=== PATIENT | male | born 1945 | race Caucasian/White ===

== ENCOUNTER 2018-05-02 15:45 | Inpatient (IN) ==
--- NOTE | 2018-05-02 16:18 | ED ---
HPI General Chief Complaint: Shortness of Breath/Dyspnea Stated Complaint: Cardiac Time Seen by Provider: 05/02/18 15:47 Source: patient Mode of arrival: EMS Limitations: no limitations History of Present Illness HPI narrative: The patient is a 73-year-old male who presents to the emergency department via EMS from the [place] clinic for atrial fibrillation. The patient states he has a remote history of atrial fibrillation with previous ablation and was on anticoagulation and medications for atrial fibrillation, however, stopped taking them 8 years ago. The patient states 8 years ago he was feeling well and was walking 3 miles daily. However, the patient moved to the local area and states it is unsafe to walk where he lives on [address]. The patient states of the last 2 months he has gained approximately 20 pounds and has increasing swelling to the lower extremities. He now notes exertional dyspnea, palpitations, and an elevated heart rate. The patient occasionally complains of mild chest discomfort with exertional activity. The patient went to the [place] clinic earlier today and they called EMS to bring him to the emergency department. The patient was in A. fib with RVR with a rate in the 140s according to EMS and they provided the patient 20 mg of Cardizem intravenously which brought the patient's heart rate down into the 80s and 90s. The patient still has mild chest discomfort. The patient states he is not taking any current medications for atrial fibrillation. He does note the 20 pound weight gain with lower extremity edema, but denies any change in urinary output. Symptoms are moderate and progressive. MD complaint: Reports rapid heart beat, "heart racing", palpitations, irregular heart beat and atrial fibrillation Onset (ago): hour(s) Duration: intermittent Severity: moderate Context: Reports occurred during rest Arrhythmia history: Reports atrial fibrillation and history of ablation Associated symptoms: Reports chest pain and shortness of breath Treatments prior to arrival: Reports calcium channel sam Related Data Home Medications Medication Instructions Recorded Confirmed No Known Home Medications 05/02/18 05/02/18 Allergies Allergy/AdvReac Type Severity Reaction Status Date / Time No Known Allergies Allergy Verified 05/02/18 15:51 Review of Systems ROS: all other systems reviewed are negative PENDING SALE TO [facility] Medical History Medical History Atrial fibrillation (Acute) Cardiomyopathy (Acute) Gastric reflux (Acute) Hypertension (Acute) Social History Social History Substance History: No History of Abuse Second Hand Smoke Exposure: No Smoking Status: Never smoker How Often Do You Have a Drink Containing Alcohol: Monthly or less Recent Travel in [facility] within the Last 8 Weeks: Yes Recent Out of Country Travel within the Last 8 Weeks: No Exam Narrative Exam Narrative: GENERAL: Awake, alert, pleasant 73-year-old male who appears his stated age and is in mild respiratory distress. SKIN: Focused skin assessment warm/dry. HEAD: Atraumatic. Normocephalic. EYES: Pupils equal and round. No scleral icterus. No injection or drainage. ENT: No nasal bleeding or discharge. Mucous membranes pink and moist. NECK: Trachea midline. No JVD. CARDIOVASCULAR: Irregularly irregular with a heart rate in the 90s. RESPIRATORY: Mild tachypnea, few rales in the bases noted bilaterally. GASTROINTESTINAL: Abdomen soft, non-tender, nondistended. MUSCULOSKELETAL: No obvious deformities. No clubbing. No cyanosis. Lower extremity pitting edema. NEUROLOGICAL: Awake and alert. No obvious cranial nerve deficits. Motor grossly within normal limits. Normal speech. PSYCHIATRIC: Appropriate mood and affect; insight and judgment normal. Course Initial Documented Vital Signs Temperature 98.9 F 05/02/18 15:51 Pulse Rate 157 H 05/02/18 15:51 Respiratory Rate 23 05/02/18 15:51 Blood Pressure 152/105 H 05/02/18 15:51 Pulse Oximetry 98 05/02/18 15:51 Last Documented Vital Signs Temperature 98.5 F 05/02/18 18:18 Pulse Rate 96 H 05/02/18 18:18 Respiratory Rate 22 05/02/18 18:18 Blood Pressure 123/71 05/02/18 18:18 Pulse Oximetry 96 05/02/18 17:41 Medical Decision Making [facility] Narrative Medical decision making narrative: IV was established, labs are drawn and sent, and the patient was placed on cardiac telemetry monitoring and continuous pulse oximetry monitoring. The patient received Cardizem prior to arrival, was given aspirin p.o. in the emergency department. EKG was ordered and interpreted. Chest x-ray was obtained. Troponin and CPK were sent to lab. Chest x-ray reveals mild pulmonary edema. CT pulmonary angiogram was negative for PE but does reveal pulmonary edema. BNP is elevated, troponin is elevated 0.07. The patient continued to be in A. fib with RVR with a rate of 115, therefore, was administered Cardizem 10 mg intravenously. The patient has acute CHF with pulmonary edema and mildly elevated troponin, require admission, echocardiogram , and serial cardiac enzymes. I discussed the patient with the on-call medical service who agrees with admission. Medical Screen Exam Complete: Yes Emergency Medical Condition: Yes Differential Diagnosis Differential Diagnosis: Differential diagnosis includes ACS, cardiomyopathy, congestive heart failure, pulmonary edema, pleural effusion, pulmonary embolism , electrolyte abnormality. Lab Data Result diagrams: 05/02/18 16:03 05/02/18 16:03 Lab Results 05/02/18 05/02/18 05/02/18 Range/Units 16:03 16:03 16:03 WBC 8.2 (4.0-11.0) th/mm3 RBC 4.23 L (4.50-5.90) mil/mm3 Hgb 13.8 (13.0-17.0) gm/dL Hct 41.0 (39.0-51.0) % MCV 96.9 (80.0-100.0) fL MCH 32.6 (27.0-34.0) pg MCHC 33.6 (32.0-36.0) % RDW 15.2 (11.6-17.2) % Plt Count 237 (150-450) th/mm3 MPV 10.1 (7.0-11.0) fL Neut % (Auto) 58.4 (16.0-70.0) % Lymph % (Auto) 27.8 (9.0-44.0) % [place] % (Auto) 12.3 H (0.0-8.0) % Eos % (Auto) 0.2 (0.0-4.0) % Baso % (Auto) 1.3 (0.0-2.0) % Neut # (Auto) 4.8 (1.8-7.7) th/mm3 Lymph # (Auto) 2.3 (1.0-4.8) th/mm3 [place] # (Auto) 1.0 H (0.0-0.9) th/mm3 Eos # (Auto) 0.0 (0.0-0.4) th/mm3 Baso # (Auto) 0.1 (0.0-0.2) th/mm3 WBC Differential . Differential Comment Auto diff final PT 13.6 H (9.8-11.6) sec INR 1.3 Ratio APTT 28.4 (23.4-31.7) sec Sodium 138 (136-145) meq/L Potassium 4.7 (3.5-5.1) meq/L Chloride 105 (98-107) meq/L Carbon Dioxide 22.5 (21.0-32.0) meq/L Anion Gap 11 (5-15) meq/L BUN 26 H (7-18) mg/dL Creatinine 1.47 H (0.60-1.30) mg/dL Estimated GFR 47 L (>89) mL/min Random Glucose 113 H (74-106) mg/dL Calcium 8.8 (8.5-10.1) mg/dL Magnesium (1.5-2.5) mg/dL Total Bilirubin 1.2 H (0.2-1.0) mg/dL AST 48 H (15-37) U/L ALT 64 (12-78) U/L Alkaline Phosphatase 163 H (45-117) U/L Total Creatine Kinase 80 (39-308) U/L Troponin I 0.07 H (0.02-0.05) ng/mL B-Natriuretic Peptide (0-100) pg/mL Total Protein 7.5 (6.4-8.2) g/dL Albumin 3.6 (3.4-5.0) g/dL 05/02/18 05/02/18 Range/Units 16:03 16:03 WBC (4.0-11.0) th/mm3 RBC (4.50-5.90) mil/mm3 Hgb (13.0-17.0) gm/dL Hct (39.0-51.0) % MCV (80.0-100.0) fL MCH (27.0-34.0) pg MCHC (32.0-36.0) % RDW (11.6-17.2) % Plt Count (150-450) th/mm3 MPV (7.0-11.0) fL Neut % (Auto) (16.0-70.0) % Lymph % (Auto) (9.0-44.0) % [place] % (Auto) (0.0-8.0) % Eos % (Auto) (0.0-4.0) % Baso % (Auto) (0.0-2.0) % Neut # (Auto) (1.8-7.7) th/mm3 Lymph # (Auto) (1.0-4.8) th/mm3 [place] # (Auto) (0.0-0.9) th/mm3 Eos # (Auto) (0.0-0.4) th/mm3 Baso # (Auto) (0.0-0.2) th/mm3 WBC Differential Differential Comment PT (9.8-11.6) sec INR Ratio APTT (23.4-31.7) sec Sodium (136-145) meq/L Potassium (3.5-5.1) meq/L Chloride (98-107) meq/L Carbon Dioxide (21.0-32.0) meq/L Anion Gap (5-15) meq/L BUN (7-18) mg/dL Creatinine (0.60-1.30) mg/dL Estimated GFR (>89) mL/min Random Glucose (74-106) mg/dL Calcium (8.5-10.1) mg/dL Magnesium 2.0 (1.5-2.5) mg/dL Total Bilirubin (0.2-1.0) mg/dL AST (15-37) U/L ALT (12-78) U/L Alkaline Phosphatase (45-117) U/L Total Creatine Kinase (39-308) U/L Troponin I (0.02-0.05) ng/mL B-Natriuretic Peptide 559 H (0-100) pg/mL Total Protein (6.4-8.2) g/dL Albumin (3.4-5.0) g/dL Imaging Data Radiologist's impression: Chest X-Ray 05/02/18 15:56 CONCLUSION: Findings suggesting small bilateral pleural effusions and associated bibasilar atelectasis. Cardiomediastinal contours are at upper limits of normal. Recommend clinical correlation for the possibility of fluid overload. Chest CTA 05/02/18 15:57 CONCLUSION: 1. No evidence of any definite pulmonary emboli. 2. Increased interstitial markings bilaterally along with bilateral effusions characteristic for pulmonary edema. ECG Data EKG Prior to Arrival: No Attestation: I personally reviewed and interpreted this ECG as follows: Interpretation: EKG reveals atrial fibrillation with RVR. Heart rate 108. RSR prime in V1. Discharge Plan Discharge Disposition Patient Disposition: ED Admit(ED Internal Use Only) Discharge Condition Condition: Stable Discharge Order Discharge Orders: ED Use Only Admit Order (Routine); Ordered 05/02/18 Ordered By: Niranjan Means Discharge Details Diagnosis: Congestive heart failure, Atrial fibrillation with RVR, Elevated troponin Physicians Team ED Provider: Niranjan Means Primary Care Provider: [facility],Physician 's Attending Provider: Zachary Arteaga ED Status: Admitted Patient
[2018-05-02 16:33] LABS: Baso # (Auto) 0.1 th/mm3 (0.0-0.2); Baso % (Auto) 1.3 % (0.0-2.0); Eos % (Auto) 0.2 % (0.0-4.0); Hemoglobin 13.8 gm/dL (13.0-17.0); Lymph # (Auto) 2.3 th/mm3 (1.0-4.8); Lymph % (Auto) 27.8 % (9.0-44.0); Mean Corpuscular HGB Conc 33.6 % (32.0-36.0); Mean Corpuscular Hemoglobin 32.6 pg (27.0-34.0); Mean Corpuscular Volume 96.9 fL (80.0-100.0); Mean Platelet Volume 10.1 fL (7.0-11.0); Mono % (Auto) 12.3 % (0.0-8.0); Neut # (Auto) 4.8 th/mm3 (1.8-7.7); Neut % (Auto) 58.4 % (16.0-70.0); Platelet Count 237 th/mm3 (150-450); Red Blood Count 4.23 mil/mm3 (4.50-5.90); Red Cell Distribution Width 15.2 % (11.6-17.2); White Blood Count 8.2 th/mm3 (4.0-11.0)
--- NOTE | 2018-05-02 16:39 | XR ---
EXAM DATE: 05/02/2018 4:33 PM EST AGE/SEX: 73 years / Male INDICATIONS: Short of breath. CLINICAL DATA: This is the patient's initial encounter. Patient reports that signs and symptoms have been present for 1 day and indicates a pain score of 0/10. MEDICAL/SURGICAL HISTORY: Myocardial infarction. Stroke. Congestive heart failure. . Cardiac stents. COMPARISON: No comparison available. FINDINGS: A single AP view of the chest demonstrates the lungs to be symmetrically aerated with mild blunting o f the lateral costophrenic angles with associated ill-defined bibasilar opacities. These findings lik tom represent small bilateral pleural effusions with associated bibasilar atelectasis. The cardiomed iastinal contours are at upper limits of normal. Osseous structures are grossly intact. CONCLUSION: Findings suggesting small bilateral pleural effusions and associated bibasilar atelectasis. Cardiomed iastinal contours are at upper limits of normal. Recommend clinical correlation for the possibility o f fluid overload. Electronically signed by: Lauryn Hartmann MD Board Certified Radiologist 05/02/2018 4:38 PM EST
[2018-05-02 16:42] LABS: Activated Partial Thrombo Time 28.4 sec (23.4-31.7); INR 1.3 Ratio; Prothrombin Time 13.6 sec (9.8-11.6)
[2018-05-02 16:44] LABS: Alanine Aminotransferase 64 U/L (12-78); Albumin 3.6 g/dL (3.4-5.0); Anion Gap 11 meq/L (5-15); Aspartate Aminotransferase 48 U/L (15-37); Blood Urea Nitrogen 26 mg/dL (7-18); Calcium 8.8 mg/dL (8.5-10.1); Carbon Dioxide 22.5 meq/L (21.0-32.0); Chloride 105 meq/L (98-107); Glomerular Filtration Rate 47 mL/min (>89); Glucose,Random 113 mg/dL (74-106); Potassium 4.7 meq/L (3.5-5.1); Sodium 138 meq/L (136-145)
[2018-05-02 16:48] LABS: Alkaline Phosphatase 163 U/L (45-117); Total Protein 7.5 g/dL (6.4-8.2); Troponin I 0.07 ng/mL (0.02-0.05)
[2018-05-02 16:54] LABS: Creatine Kinase 80 U/L (39-308)
--- NOTE | 2018-05-02 17:44 | CT ---
EXAM DATE: 05/02/2018 5:39 PM EST AGE/SEX: 73 years / Male INDICATIONS: Shortness of breath. Palpitations. CLINICAL DATA: This is the patient's initial encounter. Patient reports that signs and symptoms have been present for 1 day and indicates a pain score of 0/10. MEDICAL/SURGICAL HISTORY: Hypertension. Cardiomyopathy. A-fib. None. RADIATION DOSE: 23.15 CTDI (mGy) COMPARISON: [facility] – [place], CHEST 1V SINGLE AP, 05/02/2018. . TECHNIQUE: Volumetric scanning was performed using a multi-row detector CT scanner during bolus infu eduarda of 73 ml Omnipaque 350 (iohexol) nonionic water-soluble contrast as a single exam dose. The armando a was post processed with a variety of visualization algorithms including full volume maximum intensi ty projection and sliding thin slab reformation. Using automated exposure control and adjustment of t he mA and/or kV according to patient size, radiation dose was kept as low as reasonably achievable to obtain optimal diagnostic quality images. DICOM format image data is available electronically for r eview and comparison. FINDINGS: Pulmonary Arteries: No filling defects are seen in the pulmonary arteries out to the subsegmental ve ssels. The left and right pulmonary arteries are normal in diameter. Lung: There is increased interstitial markings bilaterally along with bilateral effusions suggestive of pulmonary edema. Effusion: Bilateral pleural effusions, right slightly larger than the left. Mediastinum: No evidence of mediastinal or hilar adenopathy. Other: The axilla is unremarkable. CONCLUSION: 1. No evidence of any definite pulmonary emboli. 2. Increased interstitial markings bilaterally along with bilateral effusions characteristic for pul monary edema. Electronically signed by: Zachary Bradley MD Board Certified Radiologist 05/02/2018 5:42 PM EST
--- NOTE | 2018-05-02 18:42 | P.HPFP ---
History of Present Illness Primary Care Physician: Physician [facility] <JenniZachary - 05/03/18 10:42> Physician [facility] <Dewey Norton - 05/02/18 19:46> Chief Complaint: Shortness of breath, dyspnea on exertion <Dewey Norton - 05/02/18 19:46> History of Present Illness: The patient is a 73-year-old male with a history of heart failure status post PCI with stent placement and atrial fibrillation status post ablation in 2008 who has been noncompliant with his medications for the past 8 years who presented to the [facility] with c/o shortness of breath, dyspnea on exertion, was found to have A. fib with RVR, and was transported to the emergency department via EMS. The patient states he has a remote history of atrial fibrillation with previous ablation and was on anticoagulation and medications for atrial fibrillation and heart failure, however he stopped taking them 8 years ago. The patient states 8 years ago, he was feeling well and was walking daily. However, the patient moved to the local area and states it is unsafe to walk where he lives on [address]. The patient states that for the last 2 months he has gained approximately 28 pounds and has had increasing swelling of the lower extremities. He recently notes progressively worse shortness of breath, dyspnea on exertion when walking to the bathroom, dizziness. Patient reports that his daughter has been trying to get him to come to the emergency department for the past week. Thus, the patient went to the [facility] clinic earlier today, and they called EMS to bring him to the emergency department. The patient was in A. fib with RVR with a rate in the 140s according to EMS and they provided the patient 20 mg of Cardizem intravenously which brought the patient's heart rate down into the 80s and 90s. The patient currently denies any chest discomfort. The patient states he is not taking any current medications for atrial fibrillation. He reports an increase in in urinary output since receiving diuretics in the emergency department. PMH: Atrial fibrillation, heart failure, coronary artery disease, astigmatism PSH: In 1985, patient was was having a lot of sciatica pain, was diagnosed with a ruptured disc, and he received a spinal injection of an enzyme from a papaya, which cured his sciatica. He also reports a h/o cardiac stent, ablation for A. fib, appendectomy at 4 years old. meds: used to take Coumadin, anti-hypertensive med, perhaps HCTZ allergies: NKA FH: dad at 67 of CVA, had [place], [place]; mom had CHF SH: no ML, but patient reports that he used to be a weekend binge drinker since 1971 until he did rehab at [place] in 2010. Patient lives at a local 65 yo and older community, completely independently. His daughter and son-in-law live in the area locally. <Dewey Norton 05/02/18 20:46> - Diagnosis (1) Atrial fibrillation with RVR (2) Congestive heart failure (3) Elevated troponin (4) SURYA (acute kidney injury) <Zachary Arteaga 05/03/18 10:42> (1) Atrial fibrillation with RVR (2) Congestive heart failure (3) Elevated troponin (4) SURYA (acute kidney injury) <Dewey Norton 05/02/18 20:32> Inpatient Certification: I certify that the inpatient services were ordered in accordance with Medicare regulations governing the order. This includes certification that hospital inpatient services are reasonable and necessary and in the case of services not specified as inpatient-only under 42 CFR 419.22(n), that they are appropriately provided as inpatient services in accordance to with the 2-midnight benchmark under 43 CFR 412.3(e) <Zachary Arteaga 05/03/18 10:42> I certify that the inpatient services were ordered in accordance with Medicare regulations governing the order. This includes certification that hospital inpatient services are reasonable and necessary and in the case of services not specified as inpatient-only under 42 CFR 419.22(n), that they are appropriately provided as inpatient services in accordance to with the 2-midnight benchmark under 43 CFR 412.3(e) <Dewey Norton 05/02/18 18:42> Review of Systems Denies fever or chills Reports + polyuria since diuresis, denies polydipsia Denies vision changes, eye pain, hearing changes, rhinorrhea, sore throat Denies sore throat, runny nose, cough No chest pain, palpitations, shortness of breath since being in the emergency part No abdominal pain Denies constipation, diarrhea, nausea, vomiting, black or bloody stools No dysuria, hematuria Denies muscle/joint pain, weakness, headache No rashes, itching <Dewey Norton - 05/02/18 19:46> PMFSH - History History Provided By: Patient <Dewey Norton - 05/02/18 18:42> - Medical History Medical History: Medical History (Last Updated 05/02/18 @ 19:16 by Dewey Mejias MD, R3) Atrial fibrillation Cardiomyopathy Gastric reflux Heart failure Hypertension <Zachary Arteaga 05/03/18 10:42> Medical History (Last Updated 05/02/18 @ 19:16 by Dewey Mejias MD, R3) Atrial fibrillation Cardiomyopathy Gastric reflux Heart failure Hypertension <Dewey Norton - 05/02/18 19:46> - Surgical History Surgical History: Surgical History (Last Updated 05/02/18 @ 19:17 by Dewey Mejias MD, R3) History of appendectomy S/P ablation of atrial fibrillation Stented coronary artery <Zachary Arteaga - 05/03/18 10:42> Surgical History (Last Updated 05/02/18 @ 19:17 by Dewey Mejias MD, R3) History of appendectomy S/P ablation of atrial fibrillation Stented coronary artery <Dewey Norton - 05/02/18 19:46> - Family History Family History: Family History (Last Updated 05/02/18 @ 19:19 by Dewey Mejias MD, R3) Father CVA (cerebral vascular accident) Myocardial infarction Diabetes Mother CHF (congestive heart failure) <Zachary Arteaga 05/03/18 10:42> Family History (Last Updated 05/02/18 @ 19:19 by Dewey Mejias MD, R3) Father CVA (cerebral vascular accident) Myocardial infarction Diabetes Mother CHF (congestive heart failure) <Dewey Norton - 05/02/18 19:46> - Social History I have reviewed the patient's Social History: Yes <Dewey Norton - 05/02 19:46> - Tobacco History Second Hand Smoke Exposure: No <Dewey Norton 05/02/18 18:42> Tobacco Use In Past 30 Days: No <Dewey Norton 05/02/18 19:46> Smoking Status: Never smoker <Dewey Norton - 05/02/18 18:42> - Alcohol History How Often Do You Have a Drink Containing Alcohol: Monthly or less (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 [place] in 2010) < Dewey Norton - 05/02/18 19:46> - Substance Use History Substance History: No History of Abuse <Dewey Norton - 05/02/18 18:42> - Travel History Recent Travel in the [facility] Within the Last 8 Weeks: Yes <Dewey Norton - 05/02/18 18:42> Recent Travel Out of the Country Within the Last 8 Weeks: No <Dewey Norton - 05/02/18 18:42> - Immunization History Tetanus Immunization: >5 Years <Dewey Norton - 05/02/18 18:42> Medications and Allergies Allergies Allergy/AdvReac Type Severity Reaction Status Date / Time No Known Allergies Allergy Verified 05/02/18 15:51 <Zachary Arteaga 05/03/18 10:42> Home Medications Medication Instructions Recorded Confirmed Type No Known Home Medications 05/02/18 05/02/18 History <Zachary Arteaga 05/03/18 10:42> Active Medications: Active Medications Acetaminophen (Tylenol) 650 mg PO Q4H PRN PRN Reason: PAIN 1-10 AND/OR FEVER >101F Last Admin: 05/03/18 05:30 Dose: 650 mg Apixaban (Eliquis) 5 mg PO BID [facility] Last Admin: 05/03/18 08:52 Dose: 5 mg Aspirin (Ecotrin) 81 mg PO DAILY [facility] Last Admin: 05/03/18 08:52 Dose: 81 mg Atorvastatin Calcium (Lipitor) 10 mg PO HS [facility] Last Admin: 05/02/18 20:36 Dose: 10 mg Carvedilol (Coreg) 12.5 mg PO BID [facility] Last Admin: 05/03/18 08:57 Dose: 12.5 mg Docusate Sodium (Colace) 100 mg PO BID PRN PRN Reason: CONSTIPATION Furosemide (Lasix Inj) 40 mg IV.PUSH BID@0900,1800 [facility] Last Admin: 05/03/18 08:52 Dose: 40 mg Lisinopril (Prinivil) 2.5 mg PO DAILY [facility] Last Admin: 12/28/18 08:51 Dose: 2.5 mg Miscellaneous (Pill Splitter) 1 each OTHER UNSCH [facility] Nitroglycerin (Nitro-Bid 2% Oint) 1 inch TOPICAL Q6HR [facility] Last Admin: 05/03/18 05:24 Dose: 1 inch Nitroglycerin (Nitrostat Sl) 0.4 mg SL Q5M PRN PRN Reason: CHEST PAIN Ondansetron HCl (Zofran Inj) 4 mg IV.PUSH Q6H PRN PRN Reason: NAUSEA OR VOMITING Potassium Chloride (Kcl) 10 meq PO BID [facility] Last Admin: 05/03/18 08:51 Dose: 10 meq Sodium Chloride (Ns Inj) 2 ml IV.FLUSH BID [facility] Last Admin: 05/02/18 20:36 Dose: 2 ml Sodium Chloride (Ns Inj) 2 ml IV.FLUSH UNSCH PRN PRN Reason: FLUSH AFTER USING IV ACCESS <Zachary Arteaga - 05/03/18 10:42> Home Medications No Known Home Medications 05/02/18 [History Confirmed 05/02/18] Active Medications Acetaminophen (Tylenol) 650 mg PO Q4H PRN PRN Reason: PAIN 1-10 AND/OR FEVER >101F Apixaban (Eliquis) 5 mg PO BID [facility] Aspirin (Ecotrin) 81 mg PO DAILY [facility] Atorvastatin Calcium (Lipitor) 10 mg PO HS [facility] Carvedilol (Coreg) 3.125 mg PO BID [facility] Docusate Sodium (Colace) 100 mg PO BID PRN PRN Reason: CONSTIPATION Furosemide (Lasix Inj) 40 mg IV.PUSH BID@0900,1800 [facility] Lisinopril (Prinivil) 2.5 mg PO DAILY [facility] Miscellaneous (Pill Splitter) 1 each OTHER UNSCH [facility] Nitroglycerin (Nitro-Bid 2% Oint) 1 inch TOPICAL Q6HR [facility] Nitroglycerin (Nitrostat Sl) 0.4 mg SL Q5M PRN PRN Reason: CHEST PAIN Ondansetron HCl (Zofran Inj) 4 mg IV.PUSH Q6H PRN PRN Reason: NAUSEA OR VOMITING Potassium Chloride (Kcl) 10 meq PO BID [facility] Sodium Chloride (Ns Inj) 2 ml IV.FLUSH BID [facility] Sodium Chloride (Ns Inj) 2 ml IV.FLUSH UNSCH PRN PRN Reason: FLUSH AFTER USING IV ACCESS <Dewey Norton - 05/02/18 20:30> Exam Vital signs: Vital Signs 05/02/18 15:51 05/02/18 15:53 05/02/18 15:56 Temperature 98.9 F 98.9 F Pulse Rate 157 H 113 H Respiratory Rate 23 20 Blood Pressure 152/105 H 152/105 H Pulse Oximetry 98 95 98 05/02/18 16:24 05/02/18 17:41 05/02/18 18:18 Temperature 98.7 F 98.8 F 98.5 F Pulse Rate 105 H 108 H 96 H Respiratory Rate 20 21 22 Blood Pressure 152/105 H 148/111 H 123/71 Pulse Oximetry 97 96 05/02/18 18:47 05/02/18 20:00 05/02/18 22:00 Temperature 97.8 F 98.2 F Pulse Rate 108 H 115 H 103 H Respiratory Rate 20 16 Blood Pressure 120/76 160/98 H Pulse Oximetry 97 11 L 05/03/18 00:00 05/03/18 04:00 05/03/18 08:00 Temperature 97.5 F L 97.9 F 97.1 F L Pulse Rate 115 H 112 H 109 H Respiratory Rate 18 18 16 Blood Pressure 134/99 H 180/90 H 148/83 H Pulse Oximetry 96 96 97 05/03/18 08:57 Temperature Pulse Rate Respiratory Rate Blood Pressure Pulse Oximetry 97 Intake & Output 05/02/18 05/03/18 05/03/18 18:59 06:59 18:59 Intake Total 240 / 240 Output Total 900 / 900 400 / 400 Balance -900 / -900 -160 / -160 Weight 117.027 kg 118.2 kg Intake: Oral 240 / 240 Output: Urine 900 / 900 400 / 400 Other: # Voids 3 Date of Last Bowel Movement 05/02/18 # Bowel Movements 1 Weight On Admission 118.2 kg <Zachary Arteaga - 05/03/18 10:42> Vital Signs 05/02/18 15:51 05/02/18 15:53 05/02/18 15:56 Temperature 98.9 F 98.9 F Pulse Rate 157 H 113 H Respiratory Rate 23 20 Blood Pressure 152/105 H 152/105 H Pulse Oximetry 98 95 98 05/02/18 16:24 05/02/18 17:41 05/02/18 18:18 Temperature 98.7 F 98.8 F 98.5 F Pulse Rate 105 H 108 H 96 H Respiratory Rate 20 21 22 Blood Pressure 152/105 H 148/111 H 123/71 Pulse Oximetry 97 96 Intake & Output 05/01/18 05/02/18 05/02/18 18:59 06:59 18:59 Output Total 900 / 900 Balance -900 / -900 Weight 117.027 kg Output: Urine 900 / 900 <Dewey Norton - 05/02/18 20:46> Narrative: GENERAL: This is a well-nourished, well-developed obese elderly patient, in no apparent distress. SKIN: No rashes, ecchymoses or lesions. Cool and dry. HEAD: Atraumatic. Normocephalic. EYES: Pupils equal round and reactive. Extraocular motions intact. No scleral icterus. No injection or drainage. ENT: Nose without bleeding, purulent drainage. Throat without erythema, tonsillar hypertrophy or exudate. Uvula midline. Airway patent. NECK: Trachea midline. No JVD or lymphadenopathy. Supple, nontender, no meningeal signs. CARDIOVASCULAR: Tachycardic rate and irregularly irregular rhythm with holosystolic murmurs, but no gallops, or rubs. RESPIRATORY: Decreased air movement at right lung base. Bibasilar crackles. Otherwise, no wheezes, or rhonchi. GASTROINTESTINAL: Abdomen soft, non-tender, nondistended. No guarding. MUSCULOSKELETAL: 1+ pitting edema to one third up the left leg and 2+ pitting edema to two thirds of the right leg. Extremities without clubbing, or cyanosis. No joint tenderness, effusion noted. No calf tenderness. NEUROLOGICAL: Awake and alert. Cranial nerves II through XII grossly intact. Motor and sensory grossly within normal limits. Normal speech. <Rosalie Dewey Mejias - 05/02/18 20:46> Results - Labs Result diagrams: 05/03/18 03:45 05/03/18 03:43 <Zachary Arteaga - 05/03/18 10:42> Abnormal lab results 05/02/18 05/02/18 05/02/18 Range/Units 16:03 16:03 16:03 RBC 4.23 L (4.50-5.90) mil/mm3 Hand % (Auto) 12.3 H (0.0-8.0) % Hand # (Auto) 1.0 H (0.0-0.9) th/mm3 PT 13.6 H (9.8-11.6) sec BUN 26 H (7-18) mg/dL Creatinine 1.47 H (0.60-1.30) mg/dL Estimated GFR 47 L (>89) mL/min Random Glucose 113 H (74-106) mg/dL Total Bilirubin 1.2 H (0.2-1.0) mg/dL AST 48 H (15-37) U/L Alkaline Phosphatase 163 H (45-117) U/L Troponin I 0.07 H (0.02-0.05) ng/mL B-Natriuretic Peptide (0-100) pg/mL 05/02/18 05/02/18 05/03/18 Range/Units 16:03 22:40 03:43 RBC (4.50-5.90) mil/mm3 Hand % (Auto) (0.0-8.0) % Hand # (Auto) (0.0-0.9) th/mm3 PT (9.8-11.6) sec BUN 30 H (7-18) mg/dL Creatinine 1.66 H (0.60-1.30) mg/dL Estimated GFR 41 L (>89) mL/min Random Glucose (74-106) mg/dL Total Bilirubin (0.2-1.0) mg/dL AST 45 H (15-37) U/L Alkaline Phosphatase 153 H (45-117) U/L Troponin I 0.06 H 0.08 H (0.02-0.05) ng/mL B-Natriuretic Peptide 559 H (0-100) pg/mL 05/03/18 Range/Units 03:45 RBC 4.07 L (4.50-5.90) mil/mm3 Hand % (Auto) (0.0-8.0) % Hand # (Auto) (0.0-0.9) th/mm3 PT (9.8-11.6) sec BUN (7-18) mg/dL Creatinine (0.60-1.30) mg/dL Estimated GFR (>89) mL/min Random Glucose (74-106) mg/dL Total Bilirubin (0.2-1.0) mg/dL AST (15-37) U/L Alkaline Phosphatase (45-117) U/L Troponin I (0.02-0.05) ng/mL B-Natriuretic Peptide (0-100) pg/mL Short CBC 05/02/18 05/03/18 Range/Units 16:03 03:45 WBC 8.2 7.9 (4.0-11.0) th/mm3 Hgb 13.8 13.0 (13.0-17.0) gm/dL Hct 41.0 40.1 (39.0-51.0) % Plt Count 237 215 (150-450) th/mm3 BMP 05/02/18 05/03/18 16:03 03:43 Sodium 138 136 Potassium 4.7 4.7 Chloride 105 102 Carbon Dioxide 22.5 23.1 BUN 26 H 30 H Creatinine 1.47 H 1.66 H Calcium 8.8 9.0 Cardiac Enzymes 05/02/18 05/02/18 05/03/18 Range/Units 16:03 22:40 03:43 Total Creatine Kinase 80 (39-308) U/L Troponin I 0.07 H 0.06 H 0.08 H (0.02-0.05) ng/mL Liver Function 05/02/18 05/03/18 Range/Units 16:03 03:43 Total Bilirubin 1.2 H 1.0 (0.2-1.0) mg/dL AST 48 H 45 H (15-37) U/L ALT 64 57 (12-78) U/L Alkaline Phosphatase 163 H 153 H (45-117) U/L Albumin 3.6 3.4 (3.4-5.0) g/dL <Zachary Arteaga - 05/03/18 10:42> Abnormal lab results 05/02/18 05/02/18 05/02/18 Range/Units 16:03 16:03 16:03 RBC 4.23 L (4.50-5.90) mil/mm3 Hand % (Auto) 12.3 H (0.0-8.0) % Hand # (Auto) 1.0 H (0.0-0.9) th/mm3 PT 13.6 H (9.8-11.6) sec BUN 26 H (7-18) mg/dL Creatinine 1.47 H (0.60-1.30) mg/dL Estimated GFR 47 L (>89) mL/min Random Glucose 113 H (74-106) mg/dL Total Bilirubin 1.2 H (0.2-1.0) mg/dL AST 48 H (15-37) U/L Alkaline Phosphatase 163 H (45-117) U/L Troponin I 0.07 H (0.02-0.05) ng/mL B-Natriuretic Peptide (0-100) pg/mL 05/02/18 Range/Units 16:03 RBC (4.50-5.90) mil/mm3 Hand % (Auto) (0.0-8.0) % Hand # (Auto) (0.0-0.9) th/mm3 PT (9.8-11.6) sec BUN (7-18) mg/dL Creatinine (0.60-1.30) mg/dL Estimated GFR (>89) mL/min Random Glucose (74-106) mg/dL Total Bilirubin (0.2-1.0) mg/dL AST (15-37) U/L Alkaline Phosphatase (45-117) U/L Troponin I (0.02-0.05) ng/mL B-Natriuretic Peptide 559 H (0-100) pg/mL Short CBC 05/02/18 Range/Units 16:03 WBC 8.2 (4.0-11.0) th/mm3 Hgb 13.8 (13.0-17.0) gm/dL Hct 41.0 (39.0-51.0) % Plt Count 237 (150-450) th/mm3 BMP 05/02/18 16:03 Sodium 138 Potassium 4.7 Chloride 105 Carbon Dioxide 22.5 BUN 26 H Creatinine 1.47 H Calcium 8.8 Cardiac Enzymes 05/02/18 Range/Units 16:03 Total Creatine Kinase 80 (39-308) U/L Troponin I 0.07 H (0.02-0.05) ng/mL Liver Function 05/02/18 Range/Units 16:03 Total Bilirubin 1.2 H (0.2-1.0) mg/dL AST 48 H (15-37) U/L ALT 64 (12-78) U/L Alkaline Phosphatase 163 H (45-117) U/L Albumin 3.6 (3.4-5.0) g/dL <Rosalie R3,Ajay - 05/02/18 18:42> - Imaging Impressions Chest X-Ray 05/02/18 15:56 CONCLUSION: Findings suggesting small bilateral pleural effusions and associated bibasilar atelectasis. Cardiomediastinal contours are at upper limits of normal. Recommend clinical correlation for the possibility of fluid overload. Chest CTA 05/02/18 15:57 CONCLUSION: 1. No evidence of any definite pulmonary emboli. 2. Increased interstitial markings bilaterally along with bilateral effusions characteristic for pulmonary edema. <Zachary Arteaga - 05/03/18 10:42> Impressions Chest X-Ray 05/02/18 15:56 CONCLUSION: Findings suggesting small bilateral pleural effusions and associated bibasilar atelectasis. Cardiomediastinal contours are at upper limits of normal. Recommend clinical correlation for the possibility of fluid overload. Chest CTA 05/02/18 15:57 CONCLUSION: 1. No evidence of any definite pulmonary emboli. 2. Increased interstitial markings bilaterally along with bilateral effusions characteristic for pulmonary edema. <Dewey Norton - 05/02/18 18:42> Caprini VTE Risk Assessment Caprini VTE Risk Assessment: Moderate/High Risk (score >= 2) <Dewey Norton - 05/02/18 19:46> Caprini Risk Assessment Model: Point Value = 1 Point Value = 2 Point Value = 3 Point Value = 5 Age 41-60 Minor surgery BMI > 25 kg/m2 Swollen legs Varicose veins or History of unexplained or recurrent spontaneous Oral contraceptives or hormone replacement Sepsis (< 1 month) Serious lung disease, including pneumonia (< 1 month) Abnormal pulmonary function Acute myocardial infarction Congestive heart failure (< 1 month) History of inflammatory bowel disease Medical patient at bed rest Age 61-74 Arthroscopic surgery Major open surgery (> 45 min) Laparoscopic surgery (> 45 min) Malignancy Confined to bed (> 72 hours) Immobilizing plaster cast Central venous access Age >= 75 History of VTE Family history of VTE Factor V Leiden Prothrombin [id number] Lupus anticoagulant Anticardiolipin antibodies Elevated serum homocysteine Heparin-induced thrombocytopenia Other congenital or acquired thrombophilia Stroke (< 1 month) Elective arthroplasty Hip, pelvis, or leg fracture Acute spinal cord injury (< 1 month) <Zachary Arteaga - 05/03/18 10:42> Point Value = 1 Point Value = 2 Point Value = 3 Point Value = 5 Age 41-60 Minor surgery BMI > 25 kg/m2 Swollen legs Varicose veins or History of unexplained or recurrent spontaneous Oral contraceptives or hormone replacement Sepsis (< 1 month) Serious lung disease, including pneumonia (< 1 month) Abnormal pulmonary function Acute myocardial infarction Congestive heart failure (< 1 month) History of inflammatory bowel disease Medical patient at bed rest Age 61-74 Arthroscopic surgery Major open surgery (> 45 min) Laparoscopic surgery (> 45 min) Malignancy Confined to bed (> 72 hours) Immobilizing plaster cast Central venous access Age >= 75 History of VTE Family history of VTE Factor V Leiden Prothrombin [id number] Lupus anticoagulant Anticardiolipin antibodies Elevated serum homocysteine Heparin-induced thrombocytopenia Other congenital or acquired thrombophilia Stroke (< 1 month) Elective arthroplasty Hip, pelvis, or leg fracture Acute spinal cord injury (< 1 month) <Dewey Norton - 05/02/18 18:42> Prophylaxis Regimen: Total Risk Factor Score Risk Level Prophylaxis Regimen 0-1 Low Early ambulation 2 Moderate Order ONE of the following: *Sequential Compression Device (SCD) *Heparin 5000 units SQ BID 3-4 Higher Order ONE of the following medications: *Heparin 5000 units SQ TID *Enoxaparin/Lovenox 40 mg SQ daily (WT < 150 kg, CrCl > 30 mL/min) *Enoxaparin/Lovenox 30 mg SQ daily (WT < 150 kg, CrCl > 10-29 mL/min) *Enoxaparin/Lovenox 30 mg SQ BID (WT < 150 kg, CrCl > 30 mL/min) AND/OR *Sequential Compression Device (SCD) 5 or more Highest Order ONE of the following medications: *Heparin 5000 units SQ TID (Preferred with Epidurals) *Enoxaparin/Lovenox 40 mg SQ daily (WT < 150 kg, CrCl > 30 mL/min) *Enoxaparin/Lovenox 30 mg SQ daily (WT < 150 kg, CrCl > 10-29 mL/min) *Enoxaparin/Lovenox 30 mg SQ BID (WT < 150 kg, CrCl > 30 mL/min) AND *Sequential Compression Device (SCD) <Zachary Arteaga - 05/03/18 10:42> Total Risk Factor Score Risk Level Prophylaxis Regimen 0-1 Low Early ambulation 2 Moderate Order ONE of the following: *Sequential Compression Device (SCD) *Heparin 5000 units SQ BID 3-4 Higher Order ONE of the following medications: *Heparin 5000 units SQ TID *Enoxaparin/Lovenox 40 mg SQ daily (WT < 150 kg, CrCl > 30 mL/min) *Enoxaparin/Lovenox 30 mg SQ daily (WT < 150 kg, CrCl > 10-29 mL/min) *Enoxaparin/Lovenox 30 mg SQ BID (WT < 150 kg, CrCl > 30 mL/min) AND/OR *Sequential Compression Device (SCD) 5 or more Highest Order ONE of the following medications: *Heparin 5000 units SQ TID (Preferred with Epidurals) *Enoxaparin/Lovenox 40 mg SQ daily (WT < 150 kg, CrCl > 30 mL/min) *Enoxaparin/Lovenox 30 mg SQ daily (WT < 150 kg, CrCl > 10-29 mL/min) *Enoxaparin/Lovenox 30 mg SQ BID (WT < 150 kg, CrCl > 30 mL/min) AND *Sequential Compression Device (SCD) <Dewey Norton - 05/02/18 18:42> Assessment and Plan - Assessment (1) Atrial fibrillation with RVR Code(s): I48.91 - Unspecified atrial fibrillation Status: Acute (2) Congestive heart failure Code(s): I50.9 - Heart failure, unspecified Status: Acute (3) Elevated troponin Code(s): R74.8 - Abnormal levels of other serum enzymes Status: Acute (4) SURYA (acute kidney injury) Code(s): N17.9 - Acute kidney failure, unspecified Status: Acute <Zachary Arteaga - 05/03/18 10:42> (1) Atrial fibrillation with RVR Code(s): I48.91 - Unspecified atrial fibrillation Status: Acute Plan: The patient was in A. fib with RVR with a rate in the 140s according to EMS and they provided the patient 20 mg of Cardizem intravenously which brought the patient's heart rate down into the 80s and 90s. On my examination, patient still tachycardic with heart rate between 100-120. -[id number] score of 4, so we will initiate anticoagulation with Eliquis 5 mg p.o. twice daily -Hemoccult prior to starting anticoagulation -personnel monitor/telemetry -Oxygen as needed -Monitor vital signs and pulse ox -PT consult -Attempt rate control with carvedilol 3.125 mg p.o. twice daily; titrate as needed (2) Congestive heart failure Code(s): I50.9 - Heart failure, unspecified Status: Acute Plan: Patient presented with fluid overload on exam, BNP of 559, chest x-ray and CTA showing pulmonary edema. Patient diuresing well after Lasix 40 mg IV given in emergency department. -Echocardiogram -personnel monitor/telemetry -Oxygen as needed -Monitor vital signs and pulse ox -PT consult -Monitor intake and output -Daily weights -Cardiac diet with fluid and salt restriction -Monitor electrolytes daily -Aspirin 81 mg p.o. daily -Atorvastatin 10 mg p.o. nightly -Carvedilol 3.125 mg p.o. twice daily -Lasix 40 mg IV twice daily -Potassium chloride 10 mg p.o. twice daily -Lisinopril 2.5 mg p.o. daily (3) Elevated troponin Code(s): R74.8 - Abnormal levels of other serum enzymes Status: Acute Plan: Patient with elevated troponin of 0.07. Patient received aspirin in the emergency department. -ACS rule out with q. 6-hour troponin, EKG -Nitroglycerin as needed for chest pain -medications as above (4) SURYA (acute kidney injury) Code(s): N17.9 - Acute kidney failure, unspecified Status: Acute Plan: Likely a component of hepatorenal syndrome secondary to CHF. Will likely improve with diuresis. If not, will consider diagnosis of CKD. -Continue to monitor kidney function daily <Dewey Norton - 05/02/18 20:32> - Assessment and Plan The patient is a 73-year-old male with a history of heart failure status post PCI with stent placement and atrial fibrillation status post ablation in 2008 who has been noncompliant with his medications for the past 8 years who presented to the [place] clinic with c/o shortness of breath, dyspnea on exertion, was found to have A. fib with RVR, and was transported to the emergency department via EMS. En route, patient was given an IV calcium channel sam, which controlled his ventricular rate. In the emergency department, patient was given aspirin. Patient will be admitted for A. fib with RVR and heart failure exacerbation. Plan to treat with rate control, anticoagulation, aspirin, statin, beta-sam, diuretics, ACEi if bp tolerates. Will also rule out ACS and trend kidney function. <Dewey Norton - 05/02/18 20:46> Discussed Condition With: Dr. Fitzgerald <Dewey Norton - 05/02/18 20:46> - Attending Attestation Patient case discussed with resident physicians I have independently examined the patient I have read the above note and agree with the assessment and plan as discussed with me I was involved in all medical decision making for this patient Zachary Arteaga MD <Zachary Arteaga - 05/03/18 10:42> <Dewey Norton - Last Filed: 05/02/18 20:32> (2) Congestive heart failure Qualifiers: Heart failure type: unspecified Heart failure chronicity: acute Qualified Code(s): I50.9 - Heart failure, unspecified <Zachary Arteaga - Last Filed: 05/03/18 10:42> (2) Congestive heart failure Qualifiers: Heart failure type: unspecified Heart failure chronicity: acute Qualified Code(s): I50.9 - Heart failure, unspecified <Dewey Norton - Last Filed: 05/02/18 20:32> (2) Congestive heart failure Qualifiers: Heart failure type: unspecified Heart failure chronicity: acute Qualified Code(s): I50.9 - Heart failure, unspecified <Zachary Arteaga - Last Filed: 05/03/18 10:42> (2) Congestive heart failure Qualifiers: Heart failure type: unspecified Heart failure chronicity: acute Qualified Code(s): I50.9 - Heart failure, unspecified
[2018-05-02] MEDS ORDERED: Docusate Sodium 100 MG Capsule PO PRN (18:47)
[2018-05-02] MEDS ORDERED: Enoxaparin Inj 40 MG/0.4 ML Syringe SQ SCH (20:00)
[2018-05-02] MEDS: Potassium Chloride 10 MEQ ER Capsule PO SCH (20:36)
[2018-05-03 04:42] LABS: Hematocrit 40.1 % (39.0-51.0); Mean Corpuscular HGB Conc 32.4 % (32.0-36.0); Mean Corpuscular Volume 98.7 fL (80.0-100.0); Mean Platelet Volume 9.9 fL (7.0-11.0); Platelet Count 215 th/mm3 (150-450); Red Blood Count 4.07 mil/mm3 (4.50-5.90); Red Cell Distribution Width 15.5 % (11.6-17.2); White Blood Count 7.9 th/mm3 (4.0-11.0)
[2018-05-03 04:53] LABS: Albumin 3.4 g/dL (3.4-5.0); Anion Gap 11 meq/L (5-15); Aspartate Aminotransferase 45 U/L (15-37); Blood Urea Nitrogen 30 mg/dL (7-18); Carbon Dioxide 23.1 meq/L (21.0-32.0); Chloride 102 meq/L (98-107); Glomerular Filtration Rate 41 mL/min (>89); Glucose,Random 105 mg/dL (74-106); Potassium 4.7 meq/L (3.5-5.1); Sodium 136 meq/L (136-145)
[2018-05-03 04:55] LABS: Alanine Aminotransferase 57 U/L (12-78)
[2018-05-03 04:58] LABS: Alkaline Phosphatase 153 U/L (45-117); Total Protein 7.1 g/dL (6.4-8.2); Troponin I 0.08 ng/mL (0.02-0.05)
[2018-05-03] MEDS: Acetaminophen 325 MG Tablet PO PRN ×2 (05:30→20:14)
[2018-05-03] MEDS: Potassium Chloride 10 MEQ ER Capsule PO SCH ×2 (08:51→20:15)
[2018-05-03] MEDS: Lisinopril 5 MG Tablet PO SCH (08:51)
[2018-05-03] MEDS: Carvedilol 12.5 MG Tablet PO SCH ×2 (08:57→20:15)
[2018-05-03] MEDS ORDERED: Lisinopril 5 MG Tablet PO SCH (09:00)
--- NOTE | 2018-05-03 10:42 | P.PNFP ---
Subjective Interval history: Patient seen on medical rounds this morning with the resident medical team, he states that he is feeling much better and would like to go home. He remains in atrial fibrillation with a heart rate from the 110s to the 130s upon review of telemetry. He endorses continued palpitations and some shortness of breath with walking to the bathroom, however denies any overt chest pain or chest pressure. He denies shortness of breath, he denies nausea or vomiting, he denies edema of the lower extremities. He did diurese 1300 mL of urine and is complaining of having to urinate frequently because of the medication In summary, this is a 73-year-old male with a history of heart failure status post PCI and atrial fibrillation status post ablation in 2008 presenting to the emergency department with progressive dyspnea on exertion and was found to be in atrial fibrillation with RVR. He had initially presented to the [facility] and was transported via EMS to the emergency room once he was found to be in A. fib with RVR. He has a remote history of CHF and A. fib for which she is not on any medications. He states that for the last 2 months he has gained approximately 28 pounds and has had some edema of the lower extremities prior to the progressive shortness of breath as described above. He endorses some dizziness with walking as well. PMH: Atrial fibrillation, heart failure, coronary artery disease, astigmatism PSH: In 1985, patient was was having a lot of sciatica pain, was diagnosed with a ruptured disc, and he received a spinal injection of an enzyme from a papaya, which cured his sciatica. He also reports a h/o cardiac stent, ablation for A. fib, appendectomy at 4 years old. meds: used to take Coumadin, anti-hypertensive med, perhaps HCTZ allergies: NKA FH: dad at 67 of CVA, had OR, DM; mom had CHF SH: no ML, but patient reports that he used to be a weekend binge drinker since 1971 until he did rehab at [facility] in 2010. Patient lives at a local 65 yo and older community, completely independently. His daughter and son-in-law live in the area locally. Results - Labs Result diagrams: 05/03/18 03:45 05/03/18 03:43 Abnormal lab results 05/02/18 05/02/18 05/02/18 Range/Units 16:03 16:03 16:03 RBC 4.23 L (4.50-5.90) mil/mm3 [place]field % (Auto) 12.3 H (0.0-8.0) % [place] # (Auto) 1.0 H (0.0-0.9) th/mm3 PT 13.6 H (9.8-11.6) sec BUN 26 H (7-18) mg/dL Creatinine 1.47 H (0.60-1.30) mg/dL Estimated GFR 47 L (>89) mL/min Random Glucose 113 H (74-106) mg/dL Total Bilirubin 1.2 H (0.2-1.0) mg/dL AST 48 H (15-37) U/L Alkaline Phosphatase 163 H (45-117) U/L Troponin I 0.07 H (0.02-0.05) ng/mL B-Natriuretic Peptide (0-100) pg/mL 05/02/18 05/02/18 05/03/18 Range/Units 16:03 22:40 03:43 RBC (4.50-5.90) mil/mm3 Whitfield % (Auto) (0.0-8.0) % [place] # (Auto) (0.0-0.9) th/mm3 PT (9.8-11.6) sec BUN 30 H (7-18) mg/dL Creatinine 1.66 H (0.60-1.30) mg/dL Estimated GFR 41 L (>89) mL/min Random Glucose (74-106) mg/dL Total Bilirubin (0.2-1.0) mg/dL AST 45 H (15-37) U/L Alkaline Phosphatase 153 H (45-117) U/L Troponin I 0.06 H 0.08 H (0.02-0.05) ng/mL B-Natriuretic Peptide 559 H (0-100) pg/mL 05/03/18 Range/Units 03:45 RBC 4.07 L (4.50-5.90) mil/mm3 Whitfield % (Auto) (0.0-8.0) % [place] # (Auto) (0.0-0.9) th/mm3 PT (9.8-11.6) sec BUN (7-18) mg/dL Creatinine (0.60-1.30) mg/dL Estimated GFR (>89) mL/min Random Glucose (74-106) mg/dL Total Bilirubin (0.2-1.0) mg/dL AST (15-37) U/L Alkaline Phosphatase (45-117) U/L Troponin I (0.02-0.05) ng/mL B-Natriuretic Peptide (0-100) pg/mL Short CBC 05/02/18 05/03/18 Range/Units 16:03 03:45 WBC 8.2 7.9 (4.0-11.0) th/mm3 Hgb 13.8 13.0 (13.0-17.0) gm/dL Hct 41.0 40.1 (39.0-51.0) % Plt Count 237 215 (150-450) th/mm3 BMP 05/02/18 05/03/18 16:03 03:43 Sodium 138 136 Potassium 4.7 4.7 Chloride 105 102 Carbon Dioxide 22.5 23.1 BUN 26 H 30 H Creatinine 1.47 H 1.66 H Calcium 8.8 9.0 Cardiac Enzymes 05/02/18 05/02/18 05/03/18 Range/Units 16:03 22:40 03:43 Total Creatine Kinase 80 (39-308) U/L Troponin I 0.07 H 0.06 H 0.08 H (0.02-0.05) ng/mL Liver Function 05/02/18 05/03/18 Range/Units 16:03 03:43 Total Bilirubin 1.2 H 1.0 (0.2-1.0) mg/dL AST 48 H 45 H (15-37) U/L ALT 64 57 (12-78) U/L Alkaline Phosphatase 163 H 153 H (45-117) U/L Albumin 3.6 3.4 (3.4-5.0) g/dL - Imaging Impressions Chest X-Ray 05/02/18 15:56 CONCLUSION: Findings suggesting small bilateral pleural effusions and associated bibasilar atelectasis. Cardiomediastinal contours are at upper limits of normal. Recommend clinical correlation for the possibility of fluid overload. Chest CTA 05/02/18 15:57 CONCLUSION: 1. No evidence of any definite pulmonary emboli. 2. Increased interstitial markings bilaterally along with bilateral effusions characteristic for pulmonary edema. Physical Exam Vital signs: Vital Signs 05/02/18 15:51 05/02/18 15:53 05/02/18 15:56 Temperature 98.9 F 98.9 F Pulse Rate 157 H 113 H Respiratory Rate 23 20 Blood Pressure 152/105 H 152/105 H Pulse Oximetry 98 95 98 05/02/18 16:24 05/02/18 17:41 05/02/18 18:18 Temperature 98.7 F 98.8 F 98.5 F Pulse Rate 105 H 108 H 96 H Respiratory Rate 20 21 22 Blood Pressure 152/105 H 148/111 H 123/71 Pulse Oximetry 97 96 05/02/18 18:47 05/02/18 20:00 05/02/18 22:00 Temperature 97.8 F 98.2 F Pulse Rate 108 H 115 H 103 H Respiratory Rate 20 16 Blood Pressure 120/76 160/98 H Pulse Oximetry 97 11 L 05/03/18 00:00 05/03/18 04:00 05/03/18 08:00 Temperature 97.5 F L 97.9 F 97.1 F L Pulse Rate 115 H 112 H 109 H Respiratory Rate 18 18 16 Blood Pressure 134/99 H 180/90 H 148/83 H Pulse Oximetry 96 96 97 05/03/18 08:57 Temperature Pulse Rate Respiratory Rate Blood Pressure Pulse Oximetry 97 Intake & Output 05/02/18 05/03/18 05/03/18 18:59 06:59 18:59 Intake Total 240 / 240 Output Total 900 / 900 400 / 400 Balance -900 / -900 -160 / -160 Weight 117.027 kg 118.2 kg Intake: Oral 240 / 240 Output: Urine 900 / 900 400 / 400 Other: # Voids 3 Date of Last Bowel Movement 05/02/18 # Bowel Movements 1 Weight On Admission 118.2 kg Narrative: GENERAL: This is a well-nourished, well-developed obese elderly patient, in no apparent distress. SKIN: No rashes, ecchymoses or lesions. Cool and dry. NECK: Trachea midline. No JVD or lymphadenopathy. CARDIOVASCULAR: Tachycardic and irregularly irregular, no obvious murmurs or gallops RESPIRATORY: Mild bibasilar crackles, otherwise without any overt wheezing or rhonchi GASTROINTESTINAL: Abdomen soft, non-tender, nondistended. No guarding. MUSCULOSKELETAL: 1+ pitting edema bilaterally to mid tibia NEUROLOGICAL: Awake and alert. Assessment and Plan - Assessment (1) Atrial fibrillation with RVR Code(s): I48.91 - Unspecified atrial fibrillation Status: Acute Plan: Patient remains in atrial fibrillation with RVR -Increase carvedilol to 12.5 mg p.o. twice daily -If he does not respond to this, we will initiate a Cardizem drip -Continue to monitor on telemetry -Continue supplemental oxygen as needed [id number] score of 4, -Started on anticoagulation with Eliquis 5 mg p.o. twice daily ACS evaluation shows a troponin of 0.07, 0.06, 0.08 with some T wave inversions of the 1 to V3 -No active chest pain at this time, likely due to rapid ventricular rate and strain 2D echocardiogram ordered and pending (2) Congestive heart failure Code(s): I50.9 - Heart failure, unspecified Status: Acute Plan: Diuresing well with 1300 mL of urine out over the last 24 hours Continue diuresis with Lasix 40 mg IV twice daily -Monitor strict I's and O's -Fluid restriction 1.5 L -Low-salt diet -Daily weights 2D echocardiogram ordered and pending BNP 559 on arrival Beta-sam with carvedilol, increased to 12.5 mg p.o. twice daily today Lisinopril initiated at 2.5 mg p.o. daily, will increase as blood pressure tolerates Atorvastatin 10 mg p.o. daily (3) Elevated troponin Code(s): R74.8 - Abnormal levels of other serum enzymes Status: Acute Plan: ACS evaluation shows troponins of 0.07, 0.06, 0.08 with no major EKG changes -Likely due to AK I as well as A. fib with RVR Continue to monitor on telemetry Nitroglycerin as needed for chest pain (4) SURYA (acute kidney injury) Code(s): N17.9 - Acute kidney failure, unspecified Status: Acute Plan: Likely due to hypoperfusion from rapid ventricular rate and congestive heart failure -Creatinine 1.66 with a GFR of 41 today, increased from a creatinine of 1.47 and GFR of 47 on arrival -Monitor with daily labs during diuresis Diuresis as above per heart failure (2) Congestive heart failure Qualifiers: Heart failure type: unspecified Heart failure chronicity: acute Qualified Code(s): I50.9 - Heart failure, unspecified
--- NOTE | 2018-05-03 11:01 | ECHRPT ---
Indication: HEART FAILURE CONCLUSIONS Normal left ventricular size. Mild basal septal prominence without evidence for left ventricular out flow tract gradient. The left ventricular systolic function is normal with an estimated ejection fraction in t he range of 55-60%. No definite regional wall motion abnormalities are present. The right atrial size is mildly dilated. The left atrial size is moderately dilated. Mild mitral annular calcification is present. Mild mitral valve regurgitation. Mild aortic valve sclerosis is present. Trace aortic valve regurgitation. There is trace tricuspid valve regurgitation. BP: / HR: Rhythm: Atrial fibrillation MEASUREMENTS (Male / Female) Normal Values Technical Quality: 2D ECHO LV Diastolic Diameter PLAX 4.6 cm 4.2 - 5.9 / 3.9 - 5.3 cm LV Systolic Diameter PLAX 3.8 cm IVS Diastolic Thickness 1.3 cm 0.6 - 1.0 / 0.6 - 0.9 cm LVPW Diastolic Thickness 0.7 cm 0.6 - 1.0 / 0.6 - 0.9 cm LV Relative Wall Thickness 0.4 RV Internal Dim ED PLAX 2.8 cm LVOT Diameter 2.0 cm LA Systolic Diameter LX 5.3 cm 3.0 - 4.0 / 2.7 - 3.8 cm DOPPLER AV Peak Velocity 204.0 cm/s AV Peak Gradient 16.6 mmHg MR Peak Velocity 610.0 cm/s MR Peak Gradient 148.8 mmHg Mitral E Point Velocity 104.0 cm/s TR Peak Velocity 344.0 cm/s TR Peak Gradient 47.3 mmHg Right Atrial Pressure 10.0 mmHg Pulmonary Artery Systolic Pressu 57.3 mmHg Right Ventricular Systolic Press 57.3 mmHg FINDINGS LEFT VENTRICLE Normal left ventricular size. Mild basal septal prominence without evidence for left ventricular out flow tract gradient. The left ventricular systolic function is normal with an estimated ejection fraction in t he range of 55-60%. No definite regional wall motion abnormalities are present. RIGHT VENTRICLE Normal right ventricular size and systolic function. LEFT ATRIUM The left atrial size is moderately dilated. RIGHT ATRIUM The right atrial size is mildly dilated. ATRIAL SEPTUM Normal atrial septal thickness without atrial level shunting by limited color doppler interrogation. AORTA The aortic root and proximal ascending aorta are normal in size on limited imaging. MITRAL VALVE Mild mitral annular calcification is present. Mild mitral valve regurgitation. AORTIC VALVE Mild aortic valve sclerosis is present. Trace aortic valve regurgitation. TRICUSPID VALVE There is trace tricuspid valve regurgitation. PULMONARY VALVE Trivial pulmonary valve regurgitation. VESSELS The inferior vena cava is normal in size. PERICARDIUM No pericardial effusion. Itz English MD (Electronically Signed) Final Date:03 May 2018 11:00
--- NOTE | 2018-05-03 20:32 | ECG ---
Date Performed: 05/03/2018 Time Performed: 05:23:56 PTAGE: 73 years EKG: Atrial fibrillation with rapid ventricular response. Possible anterior infarct - age undete rmined Inferior T wave changes are nonspecific Abnormal ECG PREVIOUS TRACING : 05/03/2018 00.44 DOCTOR: Seferino Lopez Interpretating Date/Time 05/03/2018 20:28:07
--- NOTE | 2018-05-03 20:36 | ECG ---
Date Performed: 05/03/2018 Time Performed: 00:44:56 PTAGE: 73 years EKG: Atrial fibrillation with rapid ventricular response with PVC(s) or aberrant ventricular con duction. Leftward axis Possible anterior infarct - age undetermined Inferior T wave changes are nonsp ecific Abnormal ECG PREVIOUS TRACING : 05/02/2018 15.55 DOCTOR: Seferino Lopez Interpretating Date/Time 05/03/2018 20:35:34
--- NOTE | 2018-05-03 20:46 | ECG ---
Date Performed: 05/02/2018 Time Performed: 15:55:20 PTAGE: 73 years EKG: ATRIAL FIBRILLATION WITH RAPID VENTRICULAR RESPONSE POSSIBLE RIGHT VENTRICULAR CONDUCTION D ELAY ABNORMAL RHYTHM ECG NO PREVIOUS TRACING DOCTOR: Seferino Lopez Interpretating Date/Time 05/03/2018 20:41:40
[2018-05-03] MEDS ORDERED: Melatonin 5 MG Tablet PO ONE (21:39)
[2018-05-04] MEDS: Carvedilol 12.5 MG Tablet PO SCH ×2 (08:46→21:49)
[2018-05-04] MEDS: Potassium Chloride 10 MEQ ER Capsule PO SCH ×2 (08:46→21:49)
[2018-05-04] MEDS: Acetaminophen 325 MG Tablet PO PRN ×2 (08:55→22:24)
[2018-05-04 09:14] LABS: Hematocrit 39.1 % (39.0-51.0); Hemoglobin 13.1 gm/dL (13.0-17.0); Mean Corpuscular HGB Conc 33.5 % (32.0-36.0); Mean Corpuscular Hemoglobin 32.3 pg (27.0-34.0); Mean Corpuscular Volume 96.5 fL (80.0-100.0); Mean Platelet Volume 10.2 fL (7.0-11.0); Platelet Count 196 th/mm3 (150-450); Red Blood Count 4.05 mil/mm3 (4.50-5.90); Red Cell Distribution Width 15.4 % (11.6-17.2); White Blood Count 6.7 th/mm3 (4.0-11.0)
[2018-05-04 09:58] LABS: Albumin 3.1 g/dL (3.4-5.0); Anion Gap 12 meq/L (5-15); Aspartate Aminotransferase 30 U/L (15-37); Blood Urea Nitrogen 30 mg/dL (7-18); Calcium 8.7 mg/dL (8.5-10.1); Carbon Dioxide 26.3 meq/L (21.0-32.0); Chloride 101 meq/L (98-107); Glomerular Filtration Rate 49 mL/min (>89); Glucose,Random 100 mg/dL (74-106); Potassium 4.5 meq/L (3.5-5.1); Sodium 139 meq/L (136-145)
[2018-05-04 10:03] LABS: Alanine Aminotransferase 43 U/L (12-78); Alkaline Phosphatase 135 U/L (45-117); Total Protein 6.5 g/dL (6.4-8.2)
[2018-05-04] MEDS ORDERED: Carvedilol 12.5 MG Tablet PO SCH (10:34)
[2018-05-04] MEDS ORDERED: Carvedilol 12.5 MG Tablet PO ONE (12:00)
--- NOTE | 2018-05-04 12:05 | P.PNFP ---
Subjective Interval history: Vital signs stable overnight. Per telemetry read, heart rate appeared to remain in the 80s-90s; occasionally increased to 106-110. These episodes lasted a few seconds. Patient reports no new symptoms today. Has been ambulating without problems. No new problems. Interested in going home today. <Deonna Lynn - 05/04/18 12:05> Results - Labs Result diagrams: 05/05/18 07:58 05/04/18 08:34 <Zachary Arteaga - 05/05/18 09:04> Abnormal lab results 05/04/18 05/04/18 05/04/18 Range/Units 08:34 08:34 08:34 RBC 4.05 L (4.50-5.90) mil/mm3 BUN 30 H (7-18) mg/dL Creatinine 1.41 H (0.60-1.30) mg/dL Estimated GFR 49 L (>89) mL/min Total Bilirubin 1.1 H (0.2-1.0) mg/dL Alkaline Phosphatase 135 H (45-117) U/L B-Natriuretic Peptide 320 H (0-100) pg/mL Albumin 3.1 L (3.4-5.0) g/dL 05/05/18 Range/Units 07:58 RBC 4.14 L (4.50-5.90) mil/mm3 BUN (7-18) mg/dL Creatinine (0.60-1.30) mg/dL Estimated GFR (>89) mL/min Total Bilirubin (0.2-1.0) mg/dL Alkaline Phosphatase (45-117) U/L B-Natriuretic Peptide (0-100) pg/mL Albumin (3.4-5.0) g/dL Short CBC 05/04/18 05/05/18 Range/Units 08:34 07:58 WBC 6.7 6.8 (4.0-11.0) th/mm3 Hgb 13.1 13.0 (13.0-17.0) gm/dL Hct 39.1 40.1 (39.0-51.0) % Plt Count 196 222 (150-450) th/mm3 BMP 05/04/18 08:34 Sodium 139 Potassium 4.5 Chloride 101 Carbon Dioxide 26.3 BUN 30 H Creatinine 1.41 H Calcium 8.7 Liver Function 05/04/18 Range/Units 08:34 Total Bilirubin 1.1 H (0.2-1.0) mg/dL AST 30 (15-37) U/L ALT 43 (12-78) U/L Alkaline Phosphatase 135 H (45-117) U/L Albumin 3.1 L (3.4-5.0) g/dL <Zachary Arteaga - 05/05/18 09:04> Abnormal lab results 05/04/18 05/04/18 05/04/18 Range/Units 08:34 08:34 08:34 RBC 4.05 L (4.50-5.90) mil/mm3 BUN 30 H (7-18) mg/dL Creatinine 1.41 H (0.60-1.30) mg/dL Estimated GFR 49 L (>89) mL/min Total Bilirubin 1.1 H (0.2-1.0) mg/dL Alkaline Phosphatase 135 H (45-117) U/L B-Natriuretic Peptide 320 H (0-100) pg/mL Albumin 3.1 L (3.4-5.0) g/dL Short CBC 05/04/18 Range/Units 08:34 WBC 6.7 (4.0-11.0) th/mm3 Hgb 13.1 (13.0-17.0) gm/dL Hct 39.1 (39.0-51.0) % Plt Count 196 (150-450) th/mm3 BMP 05/04/18 08:34 Sodium 139 Potassium 4.5 Chloride 101 Carbon Dioxide 26.3 BUN 30 H Creatinine 1.41 H Calcium 8.7 Liver Function 05/04/18 Range/Units 08:34 Total Bilirubin 1.1 H (0.2-1.0) mg/dL AST 30 (15-37) U/L ALT 43 (12-78) U/L Alkaline Phosphatase 135 H (45-117) U/L Albumin 3.1 L (3.4-5.0) g/dL <Deonna Lynn N - 05/04/18 12:05> - Imaging Impressions Chest X-Ray 05/04/18 00:00 CONCLUSION: Mild basilar airspace disease with small pleural effusions. No pneumothorax. Findings are similar to May 02. <Zachary Arteaga - 05/05/18 09:04> Physical Exam Vital signs: Vital Signs 05/04/18 12:00 05/04/18 12:40 05/04/18 16:00 Temperature Pulse Rate 101 H 106 H 111 H Respiratory Rate 20 Blood Pressure 76/61 L 103/80 95/53 L Pulse Oximetry 100 05/04/18 17:47 05/04/18 20:00 05/05/18 00:00 Temperature 97.8 F 97.2 F L Pulse Rate 104 H 92 H 98 H Respiratory Rate 20 20 Blood Pressure 146/87 H 102/62 Pulse Oximetry 97 97 05/05/18 04:00 05/05/18 07:47 Temperature 97.2 F L 97.2 F L Pulse Rate 88 87 Respiratory Rate 20 18 Blood Pressure 123/77 112/72 Pulse Oximetry 97 93 L Intake & Output 05/04/18 05/05/18 05/05/18 18:59 06:59 18:59 Intake Total 25 / 25 Output Total 850 / 850 1450 / 1450 Balance -850 / -850 -1425 / -1425 Weight 117.4 kg Intake: Oral 25 / 25 Output: Urine 850 / 850 1450 / 1450 Other: Date of Last Bowel Movement 05/04/18 # Bowel Movements 1 <Zachary Arteaga - 05/05/18 09:04> Vital Signs 05/03/18 12:00 05/03/18 16:00 05/03/18 17:25 Temperature 97.3 F L 96 F L Pulse Rate 114 H 103 H 88 Respiratory Rate 16 16 Blood Pressure 123/95 H 110/72 Pulse Oximetry 97 99 05/03/18 20:00 05/03/18 21:02 05/04/18 00:00 Temperature 97.8 F 97.5 F L Pulse Rate 98 H 94 H Respiratory Rate 17 18 Blood Pressure 108/60 109/71 Pulse Oximetry 93 L 98 94 L 05/04/18 04:00 05/04/18 08:00 Temperature 97.8 F 98.7 F Pulse Rate 104 H 82 Respiratory Rate 15 18 Blood Pressure 108/69 92/80 L Pulse Oximetry 98 94 L Intake & Output 05/03/18 05/04/18 05/04/18 18:59 06:59 18:59 Intake Total 960 / 960 Output Total 900 / 900 Balance 60 / 60 Weight 118 kg Intake: Oral 960 / 960 Output: Urine 900 / 900 Other: Date of Last Bowel Movement 05/03/18 <Deonna Lynn N - 05/04/18 12:05> Narrative: GENERAL: This is a well-nourished, well-developed obese elderly patient, in no apparent distress. SKIN: No rashes, ecchymoses or lesions. Cool and dry. NECK: Trachea midline. No JVD or lymphadenopathy. CARDIOVASCULAR: Regular rate, irregularly irregular, no obvious murmurs or gallops RESPIRATORY: Lungs clear to auscultation bilaterally GASTROINTESTINAL: Abdomen soft, non-tender, nondistended. No guarding. MUSCULOSKELETAL: 1+ pitting edema bilaterally to mid tibia NEUROLOGICAL: Awake and alert. <AbiDeonna Jasmine N - 05/04/18 12:05> Assessment and Plan - Assessment (1) Atrial fibrillation with RVR Code(s): I48.91 - Unspecified atrial fibrillation Status: Acute (2) Congestive heart failure Code(s): I50.9 - Heart failure, unspecified Status: Acute (3) Elevated troponin Code(s): R74.8 - Abnormal levels of other serum enzymes Status: Acute (4) SURYA (acute kidney injury) Code(s): N17.9 - Acute kidney failure, unspecified Status: Acute <JenniZachary - 05/05/18 09:04> (1) Atrial fibrillation with RVR Code(s): I48.91 - Unspecified atrial fibrillation Status: Acute Plan: Patient is in asymptomatic atrial fibrillation. Heart rate consistently less than 110 On carvedilol 12.5 mg twice a day Is being monitored on telemetry Not requiring oxygen [id number] score of 4, -Started on anticoagulation with Eliquis 5 mg p.o. twice daily 2D echo ordered, showed ejection fraction 55-60% with no evidence of significant valve regurgitation or sclerosis His heart rate occasionally increases above 100, will provide another dose of carvedilol at 1200. Patient may require 3 times daily dosing for better control (2) Congestive heart failure Code(s): I50.9 - Heart failure, unspecified Status: Acute Plan: Diuresing well Continue diuresis with Lasix 40 mg IV twice daily. May transition to Lasix 40 mg twice a day outpatient -Monitor strict I's and O's -Fluid restriction 1.5 L -Low-salt diet -Daily weights BNP 559 on arrival Beta-sam with carvedilol, increased to 12.5 mg p.o. twice daily today. Increase to 3 times daily today. Lisinopril initiated at 2.5 mg p.o. daily. May hold if blood pressure continues to remain on the low end of normal Atorvastatin 10 mg p.o. daily (3) Elevated troponin Code(s): R74.8 - Abnormal levels of other serum enzymes Status: Acute Plan: ACS evaluation shows troponins of 0.07, 0.06, 0.08 with no major EKG changes -Likely due to AK I as well as A. fib with RVR Continue to monitor on telemetry Nitroglycerin as needed for chest pain (4) SURYA (acute kidney injury) Code(s): N17.9 - Acute kidney failure, unspecified Status: Acute Plan: BUN/creatinine stable Diuresis as above per heart failure <Deonna Lynn - 05/04/18 11:57> - Assessment and Plan The patient is a 73-year-old male with a history of heart failure status post PCI with stent placement and atrial fibrillation status post ablation in 2008 who has been noncompliant with his medications for the past 8 years who presented to the [facility] with c/o shortness of breath, dyspnea on exertion, was found to have A. fib with RVR, and was transported to the emergency department via EMS. En route, patient was given an IV calcium channel sam, which controlled his ventricular rate. In the emergency department, patient was given aspirin. Patient was admitted for A. fib with RVR and heart failure exacerbation. Was placed on Eliquis for anticoagulation and started on lisinopril, diuresis with Lasix twice a day and carvedilol to regulate rate. Patient is improved. <Deonna Lynn - 05/04/18 12:05> Discharge Planning: Possible discharge today with better rate control <Deonna Lynn - 05/04/18 12:05> - Attending Attestation Pt. examined independently of resident physician on the morning of 05/04/2018 Pt. case was discussed with resident physician and I have read/agree with the assessment/plan as discussed with me I was involved in all medical decision making for this patient Zachary Arteaga MD <Zachary Arteaga - 05/05/18 09:04> <Abid ,Deonna N - Last Filed: 05/04/18 11:57> (2) Congestive heart failure Qualifiers: Heart failure type: unspecified Heart failure chronicity: acute Qualified Code(s): I50.9 - Heart failure, unspecified <Zachary Arteaga - Last Filed: 05/05/18 09:04> (2) Congestive heart failure Qualifiers: Heart failure type: unspecified Heart failure chronicity: acute Qualified Code(s): I50.9 - Heart failure, unspecified <[place] [id number],Deonna N - Last Filed: 05/04/18 11:57> (2) Congestive heart failure Qualifiers: Heart failure type: unspecified Heart failure chronicity: acute Qualified Code(s): I50.9 - Heart failure, unspecified <Zachary Arteaga - Last Filed: 05/05/18 09:04> (2) Congestive heart failure Qualifiers: Heart failure type: unspecified Heart failure chronicity: acute Qualified Code(s): I50.9 - Heart failure, unspecified
[2018-05-04] MEDS: Lisinopril 5 MG Tablet PO SCH (14:08)
--- NOTE | 2018-05-04 16:24 | XR ---
EXAM DATE: 05/04/2018 1:38 PM EST AGE/SEX: 73 years / Male INDICATIONS: Shortness of breath and wheezing. CLINICAL DATA: This is the patient's subsequent encounter. Patient reports that signs and symptoms h ave been present for 2 days and indicates a pain score of 0/10. MEDICAL/SURGICAL HISTORY: Stroke. Congestive heart failure. Stroke. . Cardiac stents. COMPARISON: . FINDINGS: There is mild basilar airspace disease and small pleural effusions. No pneumothorax. Heart size upper limits normal. CONCLUSION: Mild basilar airspace disease with small pleural effusions. No pneumothorax. Findings are similar to May 02. Electronically signed by: Nhan Gray MD Board Certified Radiologist 05/04/2018 4:23 PM EST
[2018-05-04] MEDS: Melatonin 5 MG Tablet PO PRN (22:25)
[2018-05-05] MEDS: Carvedilol 12.5 MG Tablet PO SCH (08:10)
[2018-05-05] MEDS: Potassium Chloride 10 MEQ ER Capsule PO SCH ×2 (08:10→22:21)
[2018-05-05 08:44] LABS: Hematocrit 40.1 % (39.0-51.0); Mean Corpuscular HGB Conc 32.4 % (32.0-36.0); Mean Corpuscular Hemoglobin 31.4 pg (27.0-34.0); Mean Corpuscular Volume 96.9 fL (80.0-100.0); Mean Platelet Volume 10.2 fL (7.0-11.0); Platelet Count 222 th/mm3 (150-450); Red Blood Count 4.14 mil/mm3 (4.50-5.90); Red Cell Distribution Width 14.9 % (11.6-17.2); White Blood Count 6.8 th/mm3 (4.0-11.0)
--- NOTE | 2018-05-05 08:58 | P.PNFP ---
Subjective Interval history: Patient was seen at bedside this morning. Patient reports no acute events overnight. Patient reports feeling overall well denies any lightheaded, dizziness, chest pains or palpitations. He also denies any new swelling. Patient's current heart rate as well as blood pressure was discussed at length. Plan for treatment was discussed with patient in length. Patient reported understanding had no further questions. Patient that this for care. <Amilcar ArnoldEd Blank - 05/05/18 08:58> Results - Labs Result diagrams: 05/05/18 07:58 05/05/18 07:58 <Zachary Arteaga - 05/05/18 13:43> Abnormal lab results 05/05/18 05/05/18 Range/Units 07:58 07:58 RBC 4.14 L (4.50-5.90) mil/mm3 Sodium 135 L (136-145) meq/L BUN 35 H (7-18) mg/dL Creatinine 1.52 H (0.60-1.30) mg/dL Estimated GFR 45 L (>89) mL/min Random Glucose 109 H (74-106) mg/dL Calcium 8.4 L (8.5-10.1) mg/dL Alkaline Phosphatase 130 H (45-117) U/L Albumin 3.2 L (3.4-5.0) g/dL Short CBC 05/05/18 Range/Units 07:58 WBC 6.8 (4.0-11.0) th/mm3 Hgb 13.0 (13.0-17.0) gm/dL Hct 40.1 (39.0-51.0) % Plt Count 222 (150-450) th/mm3 [facility] 05/05/18 07:58 Sodium 135 L Potassium 4.4 Chloride 100 Carbon Dioxide 24.8 BUN 35 H Creatinine 1.52 H Calcium 8.4 L Liver Function 05/05/18 Range/Units 07:58 Total Bilirubin 1.0 (0.2-1.0) mg/dL AST 24 (15-37) U/L ALT 40 (12-78) U/L Alkaline Phosphatase 130 H (45-117) U/L Albumin 3.2 L (3.4-5.0) g/dL <Zachary Arteaga - 05/05/18 13:43> Abnormal lab results 05/04/18 05/04/1818 Range/Units 08:34 08:34 08:34 RBC 4.05 L (4.50-5.90) mil/mm3 BUN 30 H (7-18) mg/dL Creatinine 1.41 H (0.60-1.30) mg/dL Estimated GFR 49 L (>89) mL/min Total Bilirubin 1.1 H (0.2-1.0) mg/dL Alkaline Phosphatase 135 H (45-117) U/L B-Natriuretic Peptide 320 H (0-100) pg/mL Albumin 3.1 L (3.4-5.0) g/dL 05/05/18 Range/Units 07:58 RBC 4.14 L (4.50-5.90) mil/mm3 BUN (7-18) mg/dL Creatinine (0.60-1.30) mg/dL Estimated GFR (>89) mL/min Total Bilirubin (0.2-1.0) mg/dL Alkaline Phosphatase (45-117) U/L B-Natriuretic Peptide (0-100) pg/mL Albumin (3.4-5.0) g/dL Short CBC 05/04/18 05/05/18 Range/Units 08:34 07:58 WBC 6.7 6.8 (4.0-11.0) th/mm3 Hgb 13.1 13.0 (13.0-17.0) gm/dL Hct 39.1 40.1 (39.0-51.0) % Plt Count 196 222 (150-450) th/mm3 [facility] 05/04/18 08:34 Sodium 139 Potassium 4.5 Chloride 101 Carbon Dioxide 26.3 BUN 30 H Creatinine 1.41 H Calcium 8.7 Liver Function 05/04/18 Range/Units 08:34 Total Bilirubin 1.1 H (0.2-1.0) mg/dL AST 30 (15-37) U/L ALT 43 (12-78) U/L Alkaline Phosphatase 135 H (45-117) U/L Albumin 3.1 L (3.4-5.0) g/dL <Ed Jara - 05/05/18 08:58> - Imaging Impressions Chest X-Ray 05/04/18 00:00 CONCLUSION: Mild basilar airspace disease with small pleural effusions. No pneumothorax. Findings are similar to May 02. <Zachary Arteaga - 05/05/18 13:43> Impressions Chest X-Ray 05/04/18 00:00 CONCLUSION: Mild basilar airspace disease with small pleural effusions. No pneumothorax. Findings are similar to May 02. <Ed Jara - 05/05/18 08:58> Physical Exam Vital signs: Vital Signs 05/04/18 16:00 05/04/18 17:47 05/04/18 20:00 Temperature 97.8 F Pulse Rate 111 H 104 H 92 H Respiratory Rate 20 20 Blood Pressure 95/53 L 146/87 H Pulse Oximetry 100 97 05/05/18 00:00 05/05/18 04:00 05/05/18 07:47 Temperature 97.2 F L 97.2 F L 97.2 F L Pulse Rate 98 H 88 87 Respiratory Rate 20 20 18 Blood Pressure 102/62 123/77 112/72 Pulse Oximetry 97 97 93 L 05/05/18 08:00 05/05/18 12:00 Temperature 97.4 F L Pulse Rate 83 90 Respiratory Rate 18 Blood Pressure 113/90 Pulse Oximetry 98 Intake & Output 05/04/18 05/05/18 05/05/18 18:59 06:59 18:59 Intake Total 25 / 25 Output Total 850 / 850 1450 / 1450 Balance -850 / -850 -1425 / -1425 Weight 117.4 kg Intake: Oral 25 / 25 Output: Urine 850 / 850 1450 / 1450 Other: Date of Last Bowel Movement 05/04/18 # Bowel Movements 1 <Zachary Arteaga - 05/05/18 13:43> Vital Signs 05/04/18 12:00 05/04/18 12:40 05/04/18 16:00 Temperature Pulse Rate 101 H 106 H 111 H Respiratory Rate 20 Blood Pressure 76/61 L 103/80 95/53 L Pulse Oximetry 100 05/04/18 17:47 05/04/18 20:00 05/05/18 00:00 Temperature 97.8 F 97.2 F L Pulse Rate 104 H 92 H 98 H Respiratory Rate 20 20 Blood Pressure 146/87 H 102/62 Pulse Oximetry 97 97 05/05/18 04:00 05/05/18 07:47 Temperature 97.2 F L 97.2 F L Pulse Rate 88 87 Respiratory Rate 20 18 Blood Pressure 123/77 112/72 Pulse Oximetry 97 93 L Intake & Output 05/04/18 05/05/18 05/05/18 18:59 06:59 18:59 Intake Total 25 / 25 Output Total 850 / 850 1450 / 1450 Balance -850 / -850 -1425 / -1425 Weight 117.4 kg Intake: Oral 25 25 Output: Urine 850 / 850 1450 / 1450 Other: Date of Last Bowel Movement 05/04/18 # Bowel Movements 1 <Ed Jara - 05/05/18 08:58> Narrative: GENERAL: This is a well-nourished, well-developed obese elderly patient, in no apparent distress. SKIN: No rashes, ecchymoses or lesions. Cool and dry. NECK: Trachea midline. No JVD or lymphadenopathy. CARDIOVASCULAR: Regular rate, irregularly irregular rhythm, no obvious murmurs or gallops RESPIRATORY: Lungs clear to auscultation bilaterally GASTROINTESTINAL: Abdomen soft, non-tender, nondistended. No guarding. MUSCULOSKELETAL: Little to no edema in lower extremities bilaterally. NEUROLOGICAL: Awake and alert. <Ed Jara - 05/05/18 11:24> Assessment and Plan - Assessment (1) Atrial fibrillation with RVR Code(s): I48.91 - Unspecified atrial fibrillation Status: Acute (2) Congestive heart failure Code(s): I50.9 - Heart failure, unspecified Status: Acute (3) Elevated troponin Code(s): R74.8 - Abnormal levels of other serum enzymes Status: Acute (4) SURYA (acute kidney injury) Code(s): N17.9 - Acute kidney failure, unspecified Status: Acute <Zachary Arteaga - 05/05/18 13:43> (1) Atrial fibrillation with RVR Code(s): I48.91 - Unspecified atrial fibrillation Status: Acute Plan: Patient is in asymptomatic atrial fibrillation. Heart rate consistently fluctuates between high 90s and over 100 bpm. Is being monitored on telemetry Not requiring oxygen [id number] score of 4, 2D echo ordered, showed ejection fraction 55-60% with no evidence of significant valve regurgitation or sclerosis Plan: -Continue anticoagulation with Eliquis 5 mg p.o. twice daily -Continue metoprolol 50 mg twice daily -Discontinue carvedilol -Begin digoxin 125 mcg p.o. daily -Seen by cardiology and will likely require ischemic evaluation with nuclear stress testing (2) Congestive heart failure Code(s): I50.9 - Heart failure, unspecified Status: Acute Plan: Diuresing well. -Continue diuresis with Lasix 40 mg IV twice daily -Monitor strict I's and O's -Fluid restriction 1.5 L -Low-salt diet -Daily weights -Continue metoprolol 50 mg twice daily -Discontinue carvedilol -Begin digoxin 125 mcg p.o. daily -Atorvastatin 10 mg p.o. daily (3) Elevated troponin Code(s): R74.8 - Abnormal levels of other serum enzymes Status: Acute Plan: ACS evaluation shows troponins of 0.07, 0.06, 0.08 with no major EKG changes -Likely due to AK I as well as A. fib with RVR Continue to monitor on telemetry Nitroglycerin as needed for chest pain (4) SURYA (acute kidney injury) Code(s): N17.9 - Acute kidney failure, unspecified Status: Acute Plan: BUN/creatinine stable Diuresis as above per heart failure <Ed Jara - 05/05/18 11:15> - Assessment and Plan The patient is a 73-year-old male with a history of heart failure status post PCI with stent placement and atrial fibrillation status post ablation in 2008 who has been noncompliant with his medications for the past 8 years who presented to the [place] clinic with c/o shortness of breath, dyspnea on exertion, was found to have A. fib with RVR, and was transported to the emergency department via EMS. En route, patient was given an IV calcium channel sam, which controlled his ventricular rate. In the emergency department, patient was given aspirin. Patient was admitted for A. fib with RVR and heart failure exacerbation. Was placed on Eliquis for anticoagulation and started on lisinopril, diuresis with Lasix twice a day and carvedilol to regulate rate. Patient is improved. <Ed Jara - 05/05/18 08:58> - Attending Attestation Pt. examined with resident physician during morning medical rounds I have discussed the patient case with resident physician I have read the above resident note and agree with the assessment/plan as discussed with me Zachary Arteaga MD <Jenni,Zachary - 05/05/18 13:43> <Amilcar ArnoldEd O - Last Filed: 05/05/18 11:15> (2) Congestive heart failure Qualifiers: Heart failure type: unspecified Heart failure chronicity: acute Qualified Code(s): I50.9 - Heart failure, unspecified <Zachary Arteaga - Last Filed: 05/05/18 13:43> (2) Congestive heart failure Qualifiers: Heart failure type: unspecified Heart failure chronicity: acute Qualified Code(s): I50.9 - Heart failure, unspecified <Amilcar ArnoldEd O - Last Filed: 05/05/18 11:15> (2) Congestive heart failure Qualifiers: Heart failure type: unspecified Heart failure chronicity: acute Qualified Code(s): I50.9 - Heart failure, unspecified <Zachary Arteaga - Last Filed: 05/05/18 13:43> (2) Congestive heart failure Qualifiers: Heart failure type: unspecified Heart failure chronicity: acute Qualified Code(s): I50.9 - Heart failure, unspecified
[2018-05-05 09:14] LABS: Albumin 3.2 g/dL (3.4-5.0); Anion Gap 10 meq/L (5-15); Blood Urea Nitrogen 35 mg/dL (7-18); Calcium 8.4 mg/dL (8.5-10.1); Carbon Dioxide 24.8 meq/L (21.0-32.0); Chloride 100 meq/L (98-107); Glomerular Filtration Rate 45 mL/min (>89); Glucose,Random 109 mg/dL (74-106); Potassium 4.4 meq/L (3.5-5.1); Sodium 135 meq/L (136-145)
[2018-05-05 09:16] LABS: Alanine Aminotransferase 40 U/L (12-78); Aspartate Aminotransferase 24 U/L (15-37)
[2018-05-05 09:19] LABS: Alkaline Phosphatase 130 U/L (45-117); Total Protein 6.8 g/dL (6.4-8.2)
--- NOTE | 2018-05-05 09:19 | P.CONCA ---
History of Present Illness Service: cardiology Consult date: 05/05/18 Reason for Consult: afib, orthostatic hypotension Primary Care Provider: [facility] Chief Complaint: Shortness of breath, dyspnea on exertion History of Present Illness: 73 yo M with CAD, prior PCI in 2009 in [place], CKD, CHF and afib (ablation > 10 years ago) with medication noncompliance who is followed by the [place] clinic, presented with progressive exertional dyspnea and LE edema x 2 weeks. Patient states he has become progressively SOB with walking from his bedroom to bathroom with assoc dizziness. His daughter insisted he be evaluated so he went to the [place] clinic where he was in afib RVR, HR 140. He was sent to [facility] ED, EKG shows T wave inversion V1-V3 (no prior EKGs for comparison), troponin mildly elevated. Echo demonstrates a normal EF 55-60% with no significant valvular disease. He had been on no medications prior to admission, now diuresing well with IV lasix and significant improvement in LE edema. He reports improvement in breathing, but still feels abdominal distention. He denies chest pain or pressure. Apparently he became quite lightheaded yesterday while ambulating the hallways with assistance. His BP was as low as 76 yesterday. this morning vitals appear stable. Review of Systems All other systems reviewed negative except as stated in HPI PMFSH - History History Provided By: Patient - Medical History Medical History: Medical History (Last Reviewed 05/05/18 @ 08:31 by Haim Bhatti, PT) Atrial fibrillation Cardiomyopathy Gastric reflux Heart failure Hypertension - Surgical History Surgical History: Surgical History (Last Reviewed 05/05/18 @ 08:31 by Haim Bhatti PT) History of appendectomy S/P ablation of atrial fibrillation Stented coronary artery - Family History Family History: Family History (Last Updated 05/02/18 @ 19:19 by Dewey Mejias MD, R3) Father CVA (cerebral vascular accident) Myocardial infarction Diabetes Mother CHF (congestive heart failure) - Tobacco History Second Hand Smoke Exposure: No Tobacco Use In Past 30 Days: No Smoking Status: Never smoker Tobacco Type: Cigarettes - Alcohol History How Often Do You Have a Drink Containing Alcohol: Monthly or less (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 [place] in 2010) - Substance Use History Substance History: No History of Abuse - Travel History Recent Travel in the [place] Within the Last 8 Weeks: Yes Recent Travel Out of the Country Within the Last 8 Weeks: No - Immunization History Tetanus Immunization: >5 Years Hx Influenza Vaccine This Season: No Medications and Allergies Active Medications: Active Medications Acetaminophen (Tylenol) 650 mg PO Q4H PRN PRN Reason: PAIN 1-10 AND/OR FEVER >101F Last Admin: 05/04/18 22:24 Dose: 650 mg Apixaban (Eliquis) 5 mg PO BID [facility] Last Admin: 05/05/18 08:09 Dose: 5 mg Aspirin (Ecotrin) 81 mg PO DAILY [facility] Last Admin: 05/05/18 08:10 Dose: 81 mg Atorvastatin Calcium (Lipitor) 10 mg PO HS [facility] Last Admin: 05/04/18 21:49 Dose: 10 mg Carvedilol (Coreg) 12.5 mg PO BID [facility] Last Admin: 05/05/18 08:10 Dose: 12.5 mg Docusate Sodium (Colace) 100 mg PO BID PRN PRN Reason: CONSTIPATION Furosemide (Lasix Inj) 40 mg IV.PUSH BID@0900,1800 [facility] Last Admin: 05/05/18 08:10 Dose: 40 mg Lisinopril (Prinivil) 2.5 mg PO DAILY [facility] Last Admin: 05/04/18 14:08 Dose: Not Given Melatonin (Melatonin) 10 mg PO HS PRN PRN Reason: SLEEP Last Admin: 05/04/18 22:25 Dose: 10 mg Miscellaneous (Pill Splitter) 1 each OTHER UNSCH [facility] Nitroglycerin (Nitrostat Sl) 0.4 mg SL Q5M PRN PRN Reason: CHEST PAIN Ondansetron HCl (Zofran Inj) 4 mg IV.PUSH Q6H PRN PRN Reason: NAUSEA OR VOMITING Potassium Chloride (Kcl) 10 meq PO BID [facility] Last Admin: 05/05/18 08:10 Dose: 10 meq Sodium Chloride (Ns Inj) 2 ml IV.FLUSH BID [facility] Last Admin: 05/04/18 21:50 Dose: 2 ml Sodium Chloride (Ns Inj) 2 ml IV.FLUSH UNSCH PRN PRN Reason: FLUSH AFTER USING IV ACCESS Allergies Allergy/AdvReac Type Severity Reaction Status Date / Time No Known Allergies Allergy Verified 05/02/18 15:51 Home Medications Medication Instructions Recorded Confirmed Type No Known Home Medications 05/02/18 05/02/18 History Exam Vital signs: Vital Signs 05/04/18 12:00 05/04/18 12:40 05/04/18 16:00 Temperature Pulse Rate 101 H 106 H 111 H Respiratory Rate 20 Blood Pressure 76/61 L 103/80 95/53 L Pulse Oximetry 100 05/04/18 17:47 05/04/18 20:00 05/05/18 00:00 Temperature 97.8 F 97.2 F L Pulse Rate 104 H 92 H 98 H Respiratory Rate 20 20 Blood Pressure 146/87 H 102/62 Pulse Oximetry 97 97 05/05/18 04:00 05/05/18 07:47 Temperature 97.2 F L 97.2 F L Pulse Rate 88 87 Respiratory Rate 20 18 Blood Pressure 123/77 112/72 Pulse Oximetry 97 93 L Intake & Output 05/04/18 05/05/18 05/05/18 18:59 06:59 18:59 Intake Total 25 / 25 Output Total 850 / 850 1450 / 1450 Balance -850 / -850 -1425 / -1425 Weight 117.4 kg Intake: Oral 25 / 25 Output: Urine 850 / 850 1450 / 1450 Other: Date of Last Bowel Movement 05/04/18 # Bowel Movements 1 Narrative: GENERAL: SKIN: Warm and dry. HEAD: Normocephalic. EYES: No scleral icterus. No injection or drainage. NECK: Supple, trachea midline. No JVD or lymphadenopathy. CARDIOVASCULAR: Irregular rate and rhythm without murmurs, gallops, or rubs. RESPIRATORY: Breath sounds equal bilaterally. No accessory muscle use. GASTROINTESTINAL: Abdomen soft, non-tender, nondistended. MUSCULOSKELETAL: No cyanosis, abdominal edema present, trace ankle edema bilateral Results 05/05/18 07:58 05/04/18 08:34 Cardiac Enzymes 05/04/18 05/04/18 Range/Units 08:34 08:34 AST 30 (15-37) U/L B-Natriuretic Peptide 320 H (0-100) pg/mL Coagulation 05/04/18 Range/Units 08:34 B-Natriuretic Peptide 320 H (0-100) pg/mL CBC 05/04/18 05/05/18 Range/Units 08:34 07:58 WBC 6.7 6.8 (4.0-11.0) th/mm3 RBC 4.05 L 4.14 L (4.50-5.90) mil/mm3 Hgb 13.1 13.0 (13.0-17.0) gm/dL Hct 39.1 40.1 (39.0-51.0) % Plt Count 196 222 (150-450) th/mm3 Comprehensive Metabolic Panel 05/04/18 Range/Units 08:34 Sodium 139 (136-145) meq/L Potassium 4.5 (3.5-5.1) meq/L Chloride 101 (98-107) meq/L Carbon Dioxide 26.3 (21.0-32.0) meq/L BUN 30 H (7-18) mg/dL Creatinine 1.41 H (0.60-1.30) mg/dL Calcium 8.7 (8.5-10.1) mg/dL AST 30 (15-37) U/L ALT 43 (12-78) U/L Alkaline Phosphatase 135 H (45-117) U/L Total Protein 6.5 D (6.4-8.2) g/dL Albumin 3.1 L (3.4-5.0) g/dL Intake and Output 05/04/18 05/05/18 05/05/18 22:59 06:59 14:59 Intake Total 25 / 25 Output Total 1450 / 1450 Balance -1425 / -1425 Intake: Oral 25 / 25 Output: Urine 1450 / 1450 Other: Date of Last Bowel Movement 05/04/18 05/04/18 # Bowel Movements 1 Weight 117.4 kg - Imaging and Cardiology Imaging: Impressions Chest X-Ray 05/04/18 00:00 CONCLUSION: Mild basilar airspace disease with small pleural effusions. No pneumothorax. Findings are similar to May 02. Assessment and Plan - Assessment (1) Congestive heart failure Code(s): I50.9 - Heart failure, unspecified Status: Acute (2) Atrial fibrillation with RVR Code(s): I48.91 - Unspecified atrial fibrillation Status: Acute - Plan 73 yo M with CAD, prior PCI in 2008 in [place], CKD, CHF and afib (ablation > 10 years ago) with medication noncompliance who is followed by the [place] clinic, presented with progressive exertional dyspnea and LE edema x 2 weeks. Patient states he has become progressively SOB with walking from his bedroom to bathroom with assoc dizziness. His daughter insisted he be evaluated so he went to the [place] clinic where he was in afib RVR, HR 140. He was sent to [facility] ED, EKG shows T wave inversion V1-V3 (no prior EKGs for comparison), troponin mildly elevated. Echo demonstrates a normal EF 55-60% with no significant valvular disease. He had been on no medications prior to admission, now diuresing well with IV lasix and significant improvement in LE edema. He reports improvement in breathing, but still feels abdominal distention. He denies chest pain or pressure. Apparently he became quite lightheaded yesterday while ambulating the hallways with assistance. His BP was as low as 76 yesterday. this morning vitals appear stable. afib- rate control strategy, asymptomatic. CHADS-Vasc > 4, cont Eliquis and carvedilol. HR and BP currently stable diastolic CHF- EF 55-60%, no valvular disease. cont diuresis, monitor I's/O's and creatinine closely no chest pain will likely require ischemic evaluation with nuclear stress testing (1) Congestive heart failure Qualifiers: Heart failure type: unspecified Heart failure chronicity: acute Qualified Code(s): I50.9 - Heart failure, unspecified
[2018-05-05] MEDS ORDERED: Digoxin Inj 500 MCG/2 ML Ampul IV.PUSH ONE (11:00)
[2018-05-05] MEDS: Melatonin 5 MG Tablet PO PRN (22:21)
[2018-05-05] MEDS: Metoprolol Tartrate 50 MG Tablet PO SCH (22:22)
--- NOTE | 2018-05-06 08:05 | P.PNCA ---
Subjective Interval history: Telemetry currently with A. fib rate 80s. Patient denies any chest pain, shortness of breath, orthopnea. Reports good urine output and reports leg swelling has nearly resolved. Medications and Allergies Active Medications: Active Medications Acetaminophen (Tylenol) 650 mg PO Q4H PRN PRN Reason: PAIN 1-10 AND/OR FEVER >101F Last Admin: 05/04/18 22:24 Dose: 650 mg Apixaban (Eliquis) 5 mg PO BID [facility] Last Admin: 05/05/18 22:22 Dose: 5 mg Aspirin (Ecotrin) 81 mg PO DAILY [facility] Last Admin: 05/05/18 08:10 Dose: 81 mg Atorvastatin Calcium (Lipitor) 10 mg PO HS [facility] Last Admin: 05/05/18 22:22 Dose: 10 mg Digoxin (Lanoxin) 125 mcg PO DAILY [facility] Docusate Sodium (Colace) 100 mg PO BID PRN PRN Reason: CONSTIPATION Furosemide (Lasix Inj) 40 mg IV.PUSH BID@0900,1800 [facility] Last Admin: 05/05/18 18:11 Dose: 40 mg Melatonin (Melatonin) 10 mg PO HS PRN PRN Reason: SLEEP Last Admin: 05/05/18 22:21 Dose: 10 mg Metoprolol Tartrate (Lopressor) 50 mg PO BID [facility] Last Admin: 05/05/18 22:22 Dose: 50 mg Miscellaneous (Pill Splitter) 1 each OTHER UNSCH [facility] Nitroglycerin (Nitrostat Sl) 0.4 mg SL Q5M PRN PRN Reason: CHEST PAIN Ondansetron HCl (Zofran Inj) 4 mg IV.PUSH Q6H PRN PRN Reason: NAUSEA OR VOMITING Potassium Chloride (Kcl) 10 meq PO BID [facility] Last Admin: 05/05/18 22:21 Dose: 10 meq Sodium Chloride (Ns Inj) 2 ml IV.FLUSH BID [facility] Last Admin: 05/05/18 22:22 Dose: 2 ml Sodium Chloride (Ns Inj) 2 ml IV.FLUSH UNSCH PRN PRN Reason: FLUSH AFTER USING IV ACCESS Allergies Allergy/AdvReac Type Severity Reaction Status Date / Time No Known Allergies Allergy Verified 05/02/18 15:51 Home Medications Medication Instructions Recorded Confirmed Type No Known Home Medications 05/02/18 05/02/18 History Physical Exam Vital signs: Vital Signs 05/05/18 12:00 05/05/18 16:00 05/05/18 16:51 Temperature 97.4 F L 97.6 F Pulse Rate 90 95 H Respiratory Rate 18 18 Blood Pressure 113/90 156/76 H Pulse Oximetry 98 92 L Pulse Oximetry [Exertion on Room Air] 92 L 05/05/18 20:00 05/06/18 00:00 05/06/18 04:00 Temperature 97.1 F L 97.1 F L 97.3 F L Pulse Rate 100 H 76 77 Respiratory Rate 17 18 16 Blood Pressure 138/94 H 127/78 102/73 Pulse Oximetry 93 L 95 95 Pulse Oximetry [Exertion on Room Air] Intake & Output 05/05/18 05/06/18 05/06/18 18:59 06:59 18:59 Intake Total 60 / 60 Balance 60 / 60 Weight 254 lb 3.088 oz Intake: Oral 60 / 60 Other: # Voids 4 3 Date of Last Bowel Movement 05/04/18 # Bowel Movements 1 Narrative: GENERAL: Well-developed well-nourished. In no acute distress. NECK: No carotid bruits. No JVD. CARDIOVASCULAR: Irregular rate and rhythm. Faint systolic murmur appreciated. RESPIRATORY: No accessory muscle use. Clear to auscultation. Breath sounds equal bilaterally. MUSCULOSKELETAL: No clubbing or cyanosis. Trace ankle edema. NEUROLOGICAL: Awake and alert. Normal speech. Results 05/05/18 07:58 05/05/18 07:58 Cardiac Enzymes 05/04/18 05/04/18 05/05/18 Range/Units 08:34 08:34 07:58 AST 30 24 (15-37) U/L B-Natriuretic Peptide 320 H (0-100) pg/mL Coagulation 05/04/18 Range/Units 08:34 B-Natriuretic Peptide 320 H (0-100) pg/mL CBC 05/04/18 05/05/18 Range/Units 08:34 07:58 WBC 6.7 6.8 (4.0-11.0) th/mm3 RBC 4.05 L 4.14 L (4.50-5.90) mil/mm3 Hgb 13.1 13.0 (13.0-17.0) gm/dL Hct 39.1 40.1 (39.0-51.0) % Plt Count 196 222 (150-450) th/mm3 Comprehensive Metabolic Panel 05/04/18 05/05/18 Range/Units 08:34 07:58 Sodium 139 135 L (136-145) meq/L Potassium 4.5 4.4 (3.5-5.1) meq/L Chloride 101 100 (98-107) meq/L Carbon Dioxide 26.3 24.8 (21.0-32.0) meq/L BUN 30 H 35 H (7-18) mg/dL Creatinine 1.41 H 1.52 H (0.60-1.30) mg/dL Calcium 8.7 8.4 L (8.5-10.1) mg/dL AST 30 24 (15-37) U/L ALT 43 40 (12-78) U/L Alkaline Phosphatase 135 H 130 H (45-117) U/L Total Protein 6.5 D 6.8 (6.4-8.2) g/dL Albumin 3.1 L 3.2 L (3.4-5.0) g/dL Intake and Output 05/05/18 05/06/18 05/06/18 22:59 06:59 14:59 Intake Total 60 / 60 Balance 60 / 60 Intake: Oral 60 / 60 Other: # Voids 4 3 Date of Last Bowel Movement 05/04/18 # Bowel Movements 1 Weight 254 lb 3.088 oz - Imaging and Cardiology Imaging: Impressions Chest X-Ray 05/04/18 00:00 CONCLUSION: Mild basilar airspace disease with small pleural effusions. No pneumothorax. Findings are similar to May 02. Assessment and Plan - Assessment (1) Congestive heart failure Code(s): I50.9 - Heart failure, unspecified Status: Acute (2) Atrial fibrillation with RVR Code(s): I48.91 - Unspecified atrial fibrillation Status: Acute - Plan 73 yo M with CAD, prior PCI in 2009 in [place], CKD, CHF and afib (ablation > 10 years ago) with medication noncompliance who is followed by the [place] clinic, presented with progressive exertional dyspnea and LE edema x 2 weeks. Patient states he has become progressively SOB with walking from his bedroom to bathroom with assoc dizziness. His daughter insisted he be evaluated so he went to the [place] clinic where he was in afib RVR, HR 140. He was sent to [facility], EKG shows T wave inversion V1-V3 (no prior EKGs for comparison), troponin mildly elevated. Echo demonstrates a normal EF 55-60% with no significant valvular disease. He had been on no medications prior to admission. A fib: Rate control strategy, continue metoprolol and digoxin asymptomatic. CHADS-Vasc > 4, cont Eliquis for anticoagulation. HR and BP currently stable Diastolic CHF: Echo with EF 55-60%, no significant valvular disease. Symptomatically improved cont diuresis, monitor I's/O's and creatinine closely Ischemic evaluation with nuclear stress testing today Discussed Condition With: Patient, Dr. Soto (1) Congestive heart failure Qualifiers: Heart failure type: unspecified Heart failure chronicity: acute Qualified Code(s): I50.9 - Heart failure, unspecified
[2018-05-06] MEDS: Potassium Chloride 10 MEQ ER Capsule PO SCH (08:11)
[2018-05-06] MEDS: Metoprolol Tartrate 50 MG Tablet PO SCH (08:12)
[2018-05-06] MEDS ORDERED: Digoxin 125 MCG Tablet PO SCH (09:00)
[2018-05-06 09:35] LABS: Baso # (Auto) 0.1 th/mm3 (0.0-0.2); Baso % (Auto) 1.4 % (0.0-2.0); Eos % (Auto) 0.4 % (0.0-4.0); Hematocrit 41.7 % (39.0-51.0); Hemoglobin 14.1 gm/dL (13.0-17.0); Lymph # (Auto) 1.3 th/mm3 (1.0-4.8); Lymph % (Auto) 15.3 % (9.0-44.0); Mean Corpuscular HGB Conc 33.7 % (32.0-36.0); Mean Corpuscular Hemoglobin 32.2 pg (27.0-34.0); Mean Corpuscular Volume 95.5 fL (80.0-100.0); Mean Platelet Volume 10.3 fL (7.0-11.0); Mono # (Auto) 0.9 th/mm3 (0.0-0.9); Mono % (Auto) 10.4 % (0.0-8.0); Neut # (Auto) 6.2 th/mm3 (1.8-7.7); Neut % (Auto) 72.5 % (16.0-70.0); Platelet Count 239 th/mm3 (150-450); Red Blood Count 4.37 mil/mm3 (4.50-5.90); Red Cell Distribution Width 15.4 % (11.6-17.2); White Blood Count 8.5 th/mm3 (4.0-11.0)
[2018-05-06 10:03] LABS: Calcium 8.7 mg/dL (8.5-10.1); Carbon Dioxide 27.1 meq/L (21.0-32.0); Potassium 4.6 meq/L (3.5-5.1)
[2018-05-06] MEDS ORDERED: Regadenoson Inj 0.4 MG/5 ML Syringe IV.PUSH ONE (10:19)
[2018-05-06 10:22] LABS: Digoxin 0.6 ng/mL (0.8-2.0)
--- NOTE | 2018-05-06 10:41 | P.PNFP ---
Subjective Interval history: Doing well, no acute problems overnight, no complaints. HR controlled. <Abid Deonna Clements N - 05/06/18 13:17> Results - Labs Result diagrams: 05/06/18 09:10 05/06/18 09:10 <Dewey Cochran L - 05/06/18 16:10> Abnormal lab results 05/06/18 05/06/18 Range/Units 09:10 09:10 RBC 4.37 L (4.50-5.90) mil/mm3 Neut % (Auto) 72.5 H (16.0-70.0) % [place] % (Auto) 10.4 H (0.0-8.0) % Sodium 135 L (136-145) meq/L BUN 33 H (7-18) mg/dL Creatinine 1.62 H (0.60-1.30) mg/dL Estimated GFR 42 L (>89) mL/min Random Glucose 151 H (74-106) mg/dL Digoxin 0.6 L (0.8-2.0) ng/mL Short CBC 05/06/18 Range/Units 09:10 WBC 8.5 (4.0-11.0) th/mm3 Hgb 14.1 (13.0-17.0) gm/dL Hct 41.7 (39.0-51.0) % Plt Count 239 (150-450) th/mm3 BMP 05/06/18 09:10 Sodium 135 L Potassium 4.6 Chloride 99 Carbon Dioxide 27.1 BUN 33 H Creatinine 1.62 H Calcium 8.7 <Dewey Cochran L - 05/06/18 16:10> Abnormal lab results 05/06/18 05/06/18 Range/Units 09:10 09:10 RBC 4.37 L (4.50-5.90) mil/mm3 Neut % (Auto) 72.5 H (16.0-70.0) % [place] % (Auto) 10.4 H (0.0-8.0) % Sodium 135 L (136-145) meq/L BUN 33 H (7-18) mg/dL Creatinine 1.62 H (0.60-1.30) mg/dL Estimated GFR 42 L (>89) mL/min Random Glucose 151 H (74-106) mg/dL Digoxin 0.6 L (0.8-2.0) ng/mL Short CBC 05/06/18 Range/Units 09:10 WBC 8.5 (4.0-11.0) th/mm3 Hgb 14.1 (13.0-17.0) gm/dL Hct 41.7 (39.0-51.0) % Plt Count 239 (150-450) th/mm3 [facility] 05/06/18 09:10 Sodium 135 L Potassium 4.6 Chloride 99 Carbon Dioxide 27.1 BUN 33 H Creatinine 1.62 H Calcium 8.7 <Deonna Lynn N - 05/06/18 10:40> - Imaging Impressions Myocardial Perfusion Scan Nuc Med 05/06/18 00:00 CONCLUSION: 1. No evidence of fixed or reversible perfusion abnormalities. 2. Normal wall motion and ejection fraction. <Dewey Cochran - 05/06/18 16:10> Physical Exam Vital signs: Vital Signs 05/05/18 16:51 05/05/18 20:00 05/06/18 00:00 Temperature 97.1 F L 97.1 F L Pulse Rate 100 H 76 Respiratory Rate 17 18 Blood Pressure 138/94 H 127/78 Pulse Oximetry 93 L 95 Pulse Oximetry [Exertion on Room Air] 92 L 05/06/18 04:00 05/06/18 08:00 05/06/18 12:00 Temperature 97.3 F L 97.3 F L 97.4 F L Pulse Rate 77 90 91 H Respiratory Rate 16 18 18 Blood Pressure 102/73 147/83 H 143/61 H Pulse Oximetry 95 97 99 Pulse Oximetry [Exertion on Room Air] Intake & Output 05/05/18 05/06/18 05/06/18 18:59 06:59 18:59 Intake Total 60 / 60 Balance 60 / 60 Weight 115.3 kg Intake: Oral 60 / 60 Other: # Voids 4 3 Date of Last Bowel Movement 05/04/18 05/04/18 # Bowel Movements 1 <Dewey Cochran - 05/06/18 16:10> Vital Signs 05/05/18 12:00 05/05/18 16:00 05/05/18 16:51 Temperature 97.4 F L 97.6 F Pulse Rate 90 95 H Respiratory Rate 18 18 Blood Pressure 113/90 156/76 H Pulse Oximetry 98 92 L Pulse Oximetry [Exertion on Room Air] 92 L 05/05/18 20:00 05/06/18 00:00 05/06/18 04:00 Temperature 97.1 F L 97.1 F L 97.3 F L Pulse Rate 100 H 76 77 Respiratory Rate 17 18 16 Blood Pressure 138/94 H 127/78 102/73 Pulse Oximetry 93 L 95 95 Pulse Oximetry [Exertion on Room Air] 05/06/18 08:00 Temperature 97.3 F L Pulse Rate 90 Respiratory Rate 18 Blood Pressure 147/83 H Pulse Oximetry 97 Pulse Oximetry [Exertion on Room Air] Intake & Output 05/05/18 05/06/18 05/06/18 18:59 06:59 18:59 Intake Total 60 / 60 Balance 60 / 60 Weight 115.3 kg Intake: Oral 60 / 60 Other: # Voids 4 3 Date of Last Bowel Movement 05/04/18 05/04/18 # Bowel Movements 1 <Deonna Lynn N - 05/06/18 10:40> Narrative: GENERAL: Well-developed well-nourished. In no acute distress. NECK: No carotid bruits. No JVD. CARDIOVASCULAR: Irregular rhythm. Regular rate. RESPIRATORY: No accessory muscle use. Clear to auscultation. Breath sounds equal bilaterally. MUSCULOSKELETAL: No clubbing or cyanosis. Trace ankle edema. NEUROLOGICAL: Awake and alert. Normal speech. <Deonna Lynn N - 05/06/18 13:17> Assessment and Plan - Assessment (1) Atrial fibrillation with RVR Code(s): I48.91 - Unspecified atrial fibrillation Status: Acute (2) Congestive heart failure Code(s): I50.9 - Heart failure, unspecified Status: Acute (3) SURYA (acute kidney injury) Code(s): N17.9 - Acute kidney failure, unspecified Status: Acute (4) Elevated troponin Code(s): R74.8 - Abnormal levels of other serum enzymes Status: Resolved <Dewey Cochran - 05/06/18 16:10> (1) Atrial fibrillation with RVR Code(s): I48.91 - Unspecified atrial fibrillation Status: Acute Plan: Patient is in asymptomatic atrial fibrillation.Heart rate controlled today Is being monitored on telemetry 2D echo ordered, showed ejection fraction 55-60% with no evidence of significant valve regurgitation or sclerosis Stress testing today showed no abnormalities Plan: -Continue anticoagulation with Eliquis 5 mg p.o. twice daily -Continue metoprolol 50 mg twice daily -Con't digoxin 125 mcg p.o. daily -Home w/above medications and PO Lasix 40 mg daily (2) Congestive heart failure Code(s): I50.9 - Heart failure, unspecified Status: Acute Plan: Diuresing well. see above -Monitor strict I's and O's -Fluid restriction 1.5 L -Low-salt diet -Daily weights (3) SURYA (acute kidney injury) Code(s): N17.9 - Acute kidney failure, unspecified Status: Acute Plan: BUN/creatinine stable Diuresis as above per heart failure Avoid nephrotoxic meds (4) Elevated troponin Code(s): R74.8 - Abnormal levels of other serum enzymes Status: Resolved <Deonna Lynn N - 05/06/18 13:12> - Assessment and Plan The patient is a 73-year-old male with a history of heart failure status post PCI with stent placement and atrial fibrillation status post ablation in 2008 who has been noncompliant with his medications for the past 8 years [facility] of breath, dyspnea on exertion, was found to have A. fib with RVR, and was transported to the emergency department via EMS. En route, patient was given an IV calcium channel sam, which controlled his ventricular rate. In the emergency department, patient was given aspirin. Patient was admitted for A. fib with RVR and heart failure exacerbation. Was placed on Eliquis for anticoagulation and started on lisinopril, diuresis with Lasix twice a day and carvedilol to regulate rate. Cardiology was consulted, Placed on digoxin which controlled the heart rate. Underwent stress testing w/cardiology, results were wnl. Patient discharged to continue medications from hospital, w/PO lasix of 40 mg daily. Advised to f/u w/PCP in 2-3 weeks. <Deonna Lynn - 05/06/18 13:17> Discharge Planning: Discharge today <Deonna Lynn - 05/06/18 13:17> - Attending Attestation Attending note: I discussed the management plan with the resident team. I also evaluated the patient independently this afternoon. I agree with the plan of care as documented above. 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 For atrial fibrillation, he will continue rate controlling medication and digoxin and anticoagulation. For CHF he will continue beta sam and diuretics. Recommend limiting sodium in the diet. Also recommend healthy lifestyle habits such as eating healthy, fruits and vegetables, regular physical activity, and reporting any cardiovascular symptoms to his physician right away. At this time he reports feeling good/back to baseline and feels ready to be discharged. - Dewey Cochran <Dewey Cochran - 05/06/18 16:10> <Deonna Lynn N - Last Filed: 05/06/18 13:12> (2) Congestive heart failure Qualifiers: Heart failure type: unspecified Heart failure chronicity: acute Qualified Code(s): I50.9 - Heart failure, unspecified <Dewey Cochran - Last Filed: 05/06/18 16:10> (2) Congestive heart failure Qualifiers: Heart failure type: unspecified Heart failure chronicity: acute Qualified Code(s): I50.9 - Heart failure, unspecified <Deonna Lynn N - Last Filed: 05/06/18 13:12> (2) Congestive heart failure Qualifiers: Heart failure type: unspecified Heart failure chronicity: acute Qualified Code(s): I50.9 - Heart failure, unspecified <Dewey Cochran - Last Filed: 05/06/18 16:10> (2) Congestive heart failure Qualifiers: Heart failure type: unspecified Heart failure chronicity: acute Qualified Code(s): I50.9 - Heart failure, unspecified
--- NOTE | 2018-05-06 11:42 | NM ---
EXAM DATE: 05/06/2018 11:28 AM EST AGE/SEX: 73 years / Male INDICATIONS:Angina. Atrial fibrillation Substernal chest pain with dyspnea. CLINICAL DATA: This is the patient's initial encounter. Patient reports that signs and symptoms have been present for 1 day and indicates a pain score of 0/10. MEDICAL/SURGICAL HISTORY: Hypertension. Congestive heart failure. Cardiomyopathy. Appendectom y. Coronary artery stent. COMPARISON: No prior exams available for comparison. DOSE: 10.4 mCi Tc 99m Myoview at rest 30.2 mCi [id number] at stress 0.4 mg Lexiscan STRESS SYMPTOMS: None. EJECTION FRACTION: 60 % TECHNIQUE: The patient underwent pharmacologic stress with infusion of prescribed dose. Continuous ECG tracing was monitored during stress. Gated SPECT imaging was performed after stress and conventi onal SPECT imaging was performed at rest. The examination was performed on a SPECT/CT scanner, both attenuation and non-corrected datasets were reviewed. FINDINGS: Distribution: The maximum perfused segment at stress is in the anterolateral wall. Perfusion Study: The pattern of perfusion at stress is within normal limits. Gated Study: There are intact wall motion and wall thickening without hypokinetic or dyskinetic segm ents. The ejection fraction is calculated at 60%. RISK CATEGORY: Low (<1% Annual Mortality Rate) CONCLUSION: 1. No evidence of fixed or reversible perfusion abnormalities. 2. Normal wall motion and ejection fraction. Electronically signed by: Jack Ordonez MD Board Certified Radiologist 05/06/2018 11:40 AM EST
--- NOTE | 2018-05-06 17:13 | P.DS ---
Date of admission: 05/02/18 18:07 Primary care physician: Physician [facility] Brief History from admission: The patient is a 73-year-old male with a history of heart failure status post PCI with stent placement and atrial fibrillation status post ablation in 2008 who has been noncompliant with his medications for the past 8 years who presented to the [place] clinic with c/o shortness of breath, dyspnea on exertion, was found to have A. fib with RVR, and was transported to the emergency department via EMS. The patient states he has a remote history of atrial fibrillation with previous ablation and was on anticoagulation and medications for atrial fibrillation and heart failure, however he stopped taking them 8 years ago. The patient states 8 years ago, he was feeling well and was walking daily. However, the patient moved to the local area and states it is unsafe to walk where he lives on [address]. The patient states that for the last 2 months he has gained approximately 28 pounds and has had increasing swelling of the lower extremities. He recently notes progressively worse shortness of breath, dyspnea on exertion when walking to the bathroom, dizziness. Patient reports that his daughter has been trying to get him to come to the emergency department for the past week. Thus, the patient went to the [place] clinic earlier today, and they called EMS to bring him to the emergency department. The patient was in A. fib with RVR with a rate in the 140s according to EMS and they provided the patient 20 mg of Cardizem intravenously which brought the patient's heart rate down into the 80s and 90s. The patient currently denies any chest discomfort. The patient states he is not taking any current medications for atrial fibrillation. He reports an increase in in urinary output since receiving diuretics in the emergency department. PMH: Atrial fibrillation, heart failure, coronary artery disease, astigmatism PSH: In 1985, patient was was having a lot of sciatica pain, was diagnosed with a ruptured disc, and he received a spinal injection of an enzyme from a papaya, which cured his sciatica. He also reports a h/o cardiac stent, ablation for A. fib, appendectomy at 4 years old. 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 Patient lives at a local 65 yo and older community, completely independently. His daughter and son-in-law live in the area locally. DS: Diagnosis - Discharge Diagnosis (1) Atrial fibrillation with RVR Status: Acute (2) Congestive heart failure Status: Acute (3) Elevated troponin Status: Resolved (4) SURYA (acute kidney injury) Status: Acute DS: Medications - Discharge Medications Prescriptions: apixaban [Eliquis] 5 mg PO BID #90 tab aspirin 81 mg PO DAILY #90 tab atorvastatin [Lipitor] 10 mg PO HS #90 tab digoxin 125 mcg PO DAILY #90 tab furosemide [Lasix] 40 mg PO DAILY #90 tab metoprolol tartrate 50 mg PO BID #90 tab DS: Summary Hospital Course: The patient is a 73-year-old male with a history of heart failure status post PCI with stent placement and atrial fibrillation status post ablation in 2008 who has been noncompliant with his medications for the past 8 years who presented to the [place] clinic with c/o shortness of breath, dyspnea on exertion, was found to have A. fib with RVR, and was transported to the emergency department via EMS. En route, patient was given an IV calcium channel sam, which controlled his ventricular rate. In the emergency department, patient was given aspirin. Patient was admitted for A. fib with RVR and heart failure exacerbation. Was placed on Eliquis for anticoagulation and started on lisinopril, diuresis with Lasix twice a day and carvedilol to regulate rate. Cardiology was consulted, placed on digoxin which controlled the heart rate. Underwent stress testing w/cardiology, results were wnl. Patient discharged to continue medications from hospital, w/PO lasix of 40 mg daily. Advised to f/u w/PCP in 2-3 weeks. - Time Spent with Patient Total time spent providing and/or coordinating discharge services: Less than 30 minutes - Quality: VTE Deep Vein Thrombosis/Pulmonary Embolism Present on Admission: No Exam Vital signs: Vital Signs 05/05/18 20:00 05/06/18 00:00 05/06/18 04:00 Temperature 97.1 F L 97.1 F L 97.3 F L Pulse Rate 100 H 76 77 Respiratory Rate 17 18 16 Blood Pressure 138/94 H 127/78 102/73 Pulse Oximetry 93 L 95 95 05/06/18 08:00 05/06/18 12:00 Temperature 97.3 F L 97.4 F L Pulse Rate 90 91 H Respiratory Rate 18 18 Blood Pressure 147/83 H 143/61 H Pulse Oximetry 97 99 Intake & Output 05/05/18 05/06/18 05/06/18 18:59 06:59 18:59 Intake Total 60 / 60 Balance 60 / 60 Weight 115.3 kg Intake: Oral 60 / 60 Other: # Voids 4 3 Date of Last Bowel Movement 05/04/18 05/04/18 # Bowel Movements 1 Narrative: GENERAL: This is a well-nourished, well-developed obese elderly patient, in no apparent distress. SKIN: No rashes, ecchymoses or lesions. Cool and dry. NECK: Trachea midline. No JVD or lymphadenopathy. CARDIOVASCULAR: Regular rate, irregularly irregular rhythm, no obvious murmurs or gallops RESPIRATORY: Lungs clear to auscultation bilaterally GASTROINTESTINAL: Abdomen soft, non-tender, nondistended. No guarding. MUSCULOSKELETAL: Little to no edema in lower extremities bilaterally. NEUROLOGICAL: Awake and alert. Results Procedures completed during hospitalization: Myocardial perfusion scan Labs on day of discharge: Labs from last 24 hours 05/06/18 05/06/18 05/06/18 09:10 09:10 09:10 WBC 8.5 RBC 4.37 L Hgb 14.1 Hct 41.7 MCV 95.5 MCH 32.2 MCHC 33.7 RDW 15.4 Plt Count 239 MPV 10.3 Neut % (Auto) 72.5 H Lymph % (Auto) 15.3 [place] % (Auto) 10.4 H Eos % (Auto) 0.4 Baso % (Auto) 1.4 Neut # (Auto) 6.2 Lymph # (Auto) 1.3 [place] # (Auto) 0.9 Eos # (Auto) 0.0 Baso # (Auto) 0.1 WBC Differential . Differential Comment Auto diff final Sodium 135 L Potassium 4.6 Chloride 99 Carbon Dioxide 27.1 Anion Gap 9 BUN 33 H Creatinine 1.62 H Estimated GFR 42 L Random Glucose 151 H Calcium 8.7 Digoxin 0.6 L Cancelled - Impressions ITS Impressions Chest CTA 05/02/18 15:57 CONCLUSION: 1. No evidence of any definite pulmonary emboli. 2. Increased interstitial markings bilaterally along with bilateral effusions characteristic for pulmonary edema. Chest X-Ray 05/04/18 00:00 CONCLUSION: Mild basilar airspace disease with small pleural effusions. No pneumothorax. Findings are similar to May 02. Myocardial Perfusion Scan Nuc Med 05/06/18 00:00 CONCLUSION: 1. No evidence of fixed or reversible perfusion abnormalities. 2. Normal wall motion and ejection fraction. Discharge Plan - Discharge Disposition Patient Disposition: Discharge Home - Discharge Condition Condition: Stable - Discharge Order Discharge Orders: Discharge Order (Routine); Ordered 05/06/18 Ordered By: Deonna Onofre R2 - Discharge Details Anticipated Discharge Date: 05/06/18 - Physicians Team Primary Care Provider: [facility],Physician 's Attending Provider: Zachary Arteaga Other Providers: Adan Soto MD
== END 2018-05-06 15:01 | disposition home or self-care (01) | DRG 308 ==
LOC: NEPE 15:45 → NEDA 18:07 → N04 19:25
PROVIDERS: ADMIT Family Medicine; ATTEND Family Medicine
CPT/HCPCS: 71010; 71045; 71275; 78452; 80048; 80053; 80162; 82272; 82550; 83520; 83735; 83880; 84443; 84484; 85025; 85027; 85610; 85730; 90774; 90784; 93005; 93017; 93306; 94150; 94618; 94620; 96374; 97110; 97162; 97530; 99285; A9502; C8952; J1160; J1940; J2785; Q9967